=== PATIENT | female | born 1980 | race African-American/Black ===

== ENCOUNTER 2019-07-02 11:54 | Emergency (ER) | payer OTHER, SELFPAY ==
[2019-07-02] VITALS (8 sets, daily range): BP systolic 113–161; BP diastolic 78–119; PULSE 85–125; RESP 16–20; TEMP 36.3; O2SAT 96–98
--- NOTE | ~2019-07-02 | CT_ITS ---
EXAMINATION: CTA chest PE protocol DATE: 07/02/2019 15:19 CDT INDICATION: Shortness of breath with cough TECHNIQUE: Computed tomographic angiography (CTA) of the chest was performed with 100 mL Omnipaque-35 0 intravenous contrast. The dose-length product was 1259.11 mGy-cm. Maximum intensity projection 3D-r econstructions of the aorta and other arteries were constructed by the technologist on a separate wor kstation. Automated exposure control and iterative reconstruction technique were employed. COMPARISON: Chest x-ray dated 07/02/2019 FINDINGS: Cardiomegaly. Small pericardial effusion. Small pleural effusions, right greater than left. There is prevascular space soft tissue which may represent lymphadenopathy and/or residual thymic ti ssue. The study is technically adequate without evidence for pulmonary embolism. There is interlobular sept al thickening with subtle areas of groundglass opacification in the right lung. There is atelectasis of the left mid and lower lung. The upper abdomen is unremarkable. There is right basilar atelectasis . IMPRESSION: 1. Interlobular septal thickening right lung with subtle patchy areas of groundglass opacification. D ifferential diagnosis includes asymmetric interstitial edema and atypical pneumonia. 2: Small pleural effusions, right greater than left. 3: Cardiomegaly with small pericardial effusion. 4: Prevascular space soft tissue nodularity which may reflect lymphadenopathy and/or residual thymic tissue. 5: Bibasilar atelectasis. Reviewed, dictated and finalized at location A. IMPRESSION: 1. Interlobular septal thickening right lung with subtle patchy areas of ground glass opacification. Differential diagnosis includes asymmetric interstitial ed luan and atypical pneumonia. 2: Small pleural effusions, right greater than left. 3: Cardiomegaly with small pericardial effusion. 4: Prevascular space soft tissue nodularity which may reflect lymphadenopathy a nd/or residual thymic tissue. 5: Bibasilar atelectasis.
--- NOTE | ~2019-07-02 | XR_ITS ---
EXAMINATION: XR chest 1V portable DATE: 07/02/2019 13:22 INDICATION: Cough. Chest pain. TECHNIQUE: A single frontal view of the chest was obtained. COMPARISON: None. FINDINGS: There are mild airspace opacities in the perihilar regions. No pleural effusion or pneumoth orax. Cardiomegaly is noted. IMPRESSION: 1. Mild airspace opacities in the perihilar regions, consistent with mild pulmonary edema versus atyp ical pneumonia. 2. Cardiomegaly. Reviewed, dictated and finalized at location A. IMPRESSION: 1. Mild airspace opacities in the perihilar regions, consistent with mild pulmo nary edema versus atypical pneumonia. 2. Cardiomegaly.
--- NOTE | 2019-07-02 12:24 | ECG_ITS ---
Measurements Intervals [place] Rate: 112 P: 17 ND: 153 QRS: 69 QRSD: 93 T: 60 QT: 278 QTc: 381 Interpretive Statements SINUS TACHYCARDIA NONSPECIFIC T-WAVE ABNORMALITY- DIFFUSE LEADS BASELINE ARTIFACT- I, II, III, AVR, AVL, AVF ABNORMAL ECG Electronically Signed On 07-02-2019 15:46:41 CDT by Adalid Carr D.O.
--- NOTE | 2019-07-02 12:27 | ED.URI ---
HPI - URI/Sore Throat General Chief Complaint: Upper Respiratory Infection <Angela Martinez PA-C - Last Filed: 07/02/19 17:34> Stated Complaint: cough/diarrhea/freq urination <SANTO Rodriguez Last Filed: 07/02/19 17:34> Time Seen by Provider: 07/02/19 12:13 <SANTO Rodriguez Last Filed: 07/02/19 17:34> Source: patient <SANTO Rodriguez Last Filed: 07/02/19 17:34> Mode of arrival: ambulatory <SANTO Rodriguez Last Filed: 07/02/19 17:34> Limitations: no limitations <SANTO Rodriguez Last Filed: 07/02/19 17:34> History of Present Illness HPI Narrative: This is a 38 year old female that presents to the ER for cold symptoms x 2 weeks. Reports cough and congestion. Also reports some shortness of breath with exertion. Reports some left sided chest pain that is worse with breathing and coughing. Reports she has been treated with antibiotics without improvement. Reports she also has been having loose stools since she started the antibiotics. Denies fever, abdominal pain, vomiting, or hematochezia. <Angela Martinez PA-C - Last Filed: 07/02/19 17:34> Related Data Allergies/Adverse Reactions: Allergies Allergy/AdvReac Type Severity Reaction Status Date / Time No Known Allergies Allergy Verified 07/02/19 12:05 <SANTO Rodriguez Last Filed: 07/02/19 17:34> Review of Systems Review of Systems: Narrative: CONSTITUTIONAL: Denies fever ENT: Reports congestion. Denies sore throat, or otalgia. CARDIOVASCULAR: Reports chest pain RESPIRATORY: Reports cough and dyspnea. GASTROINTESTINAL: Reports diarrhea. Denies abdominal pain, nausea, vomiting <SANTO Rodriguez Last Filed: 07/02/19 17:34> All systems reviewed & are unremarkable except as noted in HPI and below <SANTO Rodriguez Last Filed: 07/02/19 17:34> PMFSH Past Medical History Medical History: Medical History (Updated 07/03/19 @ 00:00 by Nimo Lepe) No active medical problems <Angela Martinez PA-C - Last Filed: 07/02/19 17:34> Social History Social History: Social History (Updated 07/02/19 @ 12:28 by Angela Martinez PA-C) Smoking status: Never smoker <Angela Martinez PA-C - Last Filed: 07/02/19 17:34> Exam Narrative: Exam Narrative: GENERAL: Well-appearing, well-nourished, and in no acute distress. HEAD: Normocephalic, atraumatic. EYES: EOMI. ENT: Turbinates swollen and pale. Mucous membranes moist. Oropharynx without tonsillar hypertrophy exudate or other lesions. Bilateral TMs pearly solomon non-bulging NECK: Supple. No adenopathy or masses. CHEST: Clear to auscultation. No respiratory distress. No wheezes rales or rhonchi HEART: Regular rate and rhythm. No murmur heard. Normal peripheral pulses. EXTREMITIES: Normal range of motion. No edema. SKIN: Warm, dry, no rash. NEURO: No focal deficits. Alert and oriented x3. PSYCH: Normal mood and affect <Angela Martinez PA-C - Last Filed: 07/02/19 17:34> Course RETAIL SUPPORT SPECIALIST/PA Physician Supervision For this patient encounter, I reviewed the RETAIL SUPPORT SPECIALIST or PA documentation, treatment plan, and medical decision making; and I had [id number] time with this patient. 38 year old female with cough, congestion, and shortness of breath with exertion x1 month. Treated with antibiotics without improvement. Labs and imaging concerning for CHF, versus atypical pneumonia. Was planning for admission, but she chose to sign out AMA. <Jj Rabago MD - Last Filed: 07/03/19 13:50> Vital Signs Vital signs: Vital Signs Temperature 36.3 C L 07/02/19 12:01 Pulse Rate 125 H 07/02/19 12:01 Respiratory Rate 20 07/02/19 12:01 Pulse Oximetry 98 07/02/19 12:01 Temperature 36.3 C L 07/02/19 12:01 Pulse Rate 96 07/02/19 18:04 Respiratory Rate 20 07/02/19 18:04 Blood Pressure 113/78 07/02/19 18:04 Pulse Oximetry 96 07/02/19 18:04 <Angela Martinez PA-C - Last Filed: 07/02/19 17:34>
[2019-07-02] MEDS: KETOROLAC 30 MG/ML VIAL (*BKC) IV PUSH (12:45)
[2019-07-02] MEDS: SODIUM CHLORIDE 0.9% IV 500 ML 999 ML IV CONT (12:45)
--- NOTE | 2019-07-02 12:52 | PC.NURSE ---
unable to obtain blood, landy forrester to attempt
[2019-07-02 13:26] LABS: Lactic Acid Reflex 1.1 mmol/L (0.7-2.1)
[2019-07-02 13:28] LABS: Alanine Aminotransferase 31 U/L (4-35); Albumin Level 3.1 g/dL (3.5-5.1); Alkaline Phosphatase 63 U/L (38-126); Aspartate Amino Transferase 35 U/L (14-36); Bilirubin,Total 0.4 mg/dL (0.2-1.3); Blood Urea Nitrogen 10 mg/dL (7-17); Calcium 8.6 mg/dL (8.4-10.2); Carbon Dioxide 21 mmol/L (22-30); Chloride 107 mmol/L (98-107); Estimated Glomerular Filt Rate > 60; Glucose 109 mg/dL (65-105); Sodium 135 mmol/L (137-145)
[2019-07-02 13:32] LABS: CRP 1.8 mg/dL (<1.0); Lactate Dehydrogenase 739 U/L (313-618)
[2019-07-02 13:40] LABS: NT Pro B Type Natriuretic Pept 3080 PG/ML (5-100); Troponin I 0.022 ng/mL (0.000-0.034)
[2019-07-02 13:51] LABS: Basophils Percent Auto 0.3 % (0.2-1.2); Eosinophils Absolute Auto 0.1 K/mm3 (0-0.3); Eosinophils Percent Auto 0.5 % (0-4.4); Hematocrit 37.2 % (37.0-47.0); Hemoglobin 11.1 g/dL (12.0-15.0); Immature Granulocyte Absolute 0.04 K/mm3 (0.00-0.031); Immature Granulocyte Percent A 0.4 % (0-0.5); Lymphocytes Absolute Auto 2.73 K/mm3 (0.9-3.2); Lymphocytes Percent Auto 29.7 % (18.3-44.2); Mean Corpuscular HGB Conc 29.8 g/dl (32-36); Mean Corpuscular Hemoglobin 22.3 pg (26-34); Mean Corpuscular Volume 74.7 fl (80-100); Mean Platelet Volume 10.7 fl (7.4-10.4); Monocytes Absolute Auto 0.5 K/mm3 (0.1-0.6); Monocytes Percent Auto 5.2 % (2.6-8.5); Neutrophils Absolute Auto 5.9 K/mm3 (1.3-6.7); Neutrophils Percent Auto 63.9 % (45.5-73.1); Platelet Count Result 369 k/mm3 (150-375); Red Blood Count 4.98 M/mm3 (4.2-5.4); Red Cell Distribution Width 16.4 % (11.5-14.5); White Blood Count 9.2 K/mm3 (4.5-10.0)
[2019-07-02 13:59] LABS: INR 1.1; Prothrombin Time 13.6 Seconds (11.1-14.7)
[2019-07-02 14:00] LABS: Partial Thromboplastin Time 25.3 SECONDS (22.3-36.8)
[2019-07-02 14:03] LABS: D Dimer 0.89 ug/mL (<0.48); Hypochromasia 1+ (NORMAL); Microcytosis 1+ (NORMAL); Platelet Estimate Adequate (Adequate)
--- NOTE | 2019-07-02 14:10 | PC.NURSE ---
Pt ambulatory to restroom with no issues
[2019-07-02 14:25] LABS: Add Urine Microscopic? YES; Appearance Urine Clear (Clear); Bacteria Urine Trace /hpf; Bilirubin Urine Negative (Negative); Blood Urine Negative (Negative); Color Urine Yellow (Yellow); Glucose Urine UA Negative (Negative); Ketones Urine Negative (Negative); Leukocyte Esterase Ur Negative LEU/UL (Negative); Mucus Urine Moderate /lpf; Nitrate Urine Negative (Negative); Protein Urine 2+ mg/dL (Negative); RBC Urine 0-2 /hpf (0-2); Specific Grav Ur 1.024 (1.001-1.035); Squamous Epithelial Cell Urine Many /hpf (Few)
--- NOTE | 2019-07-02 15:06 | PC.NURSE ---
Pt to CT
[2019-07-02] MEDS: LABETALOL HCL INJ 100 MG/20 ML VIAL 20 MG IV PUSH (15:50)
[2019-07-02] MEDS: FUROSEMIDE INJ 40 MG/4 ML VIAL IV PUSH (16:11)
--- NOTE | 2019-07-02 16:20 | PC.NURSE ---
EPD to bedside updated patient on plan of care. Pt and family member had several questions. EPD answered. Pt states she does not want to be admitted here and wants to be admitted at a facility closer to home.
--- NOTE | 2019-07-02 16:24 | PC.NURSE ---
Called phlebotomy to draw 3 hour troponin.
--- NOTE | 2019-07-02 16:28 | PC.NURSE ---
LAb at bedside for trop
[2019-07-02] MEDS: ONDANSETRON INJ 4 MG/2 ML VIAL IV PUSH (16:56)
== END 2019-07-02 18:32 | disposition left against medical advice (07) ==
PROVIDERS: Physician Assistant; Emergency Provider Emergency Medicine
DX: J18.9 Pneumonia, unspecified organism (principal); I30.9 Acute pericarditis, unspecified; I50.9 Heart failure, unspecified; I51.7 Cardiomegaly; R00.0 Tachycardia, unspecified; R94.31 Abnormal electrocardiogram [ECG] [EKG]
CPT/HCPCS: 36415; 71045; 71275; 80053; 81001; 81025; 83605; 83615; 83880; 84484; 85025; 85380; 85610; 85730; 86140; 87086; 87088; 87804; 93005; 96361; 96365; 96367; 96375; 99284; J0456; J0696; J1885; J1940; J2405; J7040; Q9967

== ENCOUNTER 2021-07-07 20:32 | Emergency (ER) | payer OTHER, SELFPAY ==
--- NOTE | ~2021-07-07 | XR_ITS ---
EXAMINATION: XR abdomen obstructive series EXAM DATE: 07/07/2021 23:55 INDICATION: Constipation and abdominal cramping TECHNIQUE: Frontal upright projection of the upper abdomen, frontal projection of the lower abdomen f or interpretation. There is no prior study for comparison. FINDINGS: There is moderate to large amount of ascending, transverse and descending colonic stool an d gas with transition at the mid descending colon, small amount of sigmoid colonic stool and gas. No dilated small bowel. There is no organomegaly. No suspicious soft tissue calcifications identified. IMPRESSION: Moderate to large amount of colonic stool to mid descending colon with transition to smal l amount in the sigmoid. Probably constipation but if symptoms persist consider CT without contrast t o exclude possibility of obstructing colonic mass. Reviewed, dictated and finalized at location A. IMPRESSION: Moderate to large amount of colonic stool to mid descending colon w ith transition to small amount in the sigmoid. Probably constipation but if sym ptoms persist consider CT without contrast to exclude possibility of obstructin g colonic mass.
[2021-07-07 20:33] VITALS: BP 154/107; PULSE 85; RESP 16; TEMP 36.4; O2SAT 100
--- NOTE | 2021-07-07 22:55 | ED.ABDPAIN ---
HPI - Abdominal Pain General Chief Complaint: Abdominal Pain Stated Complaint: im having alot of gas Time Seen by Provider: 07/07/21 22:35 Source: patient and RN notes reviewed Mode of arrival: ambulatory Limitations: no limitations History of Present Illness HPI narrative: 40-year-old female presenting to the emergency department for evaluation of multiple complaints. Patient states that for the last few weeks that she has had intermittent abdominal cramping and some epigastric pain. Patient also reports she has been having some constipation. Patient states she is still passing stool but describes it as small balls. Patient also reports lower extremity thigh pain and popping of her wrists and ankles that has been ongoing for the past few months patient denies any specific incident of injury. Patient reports he does have follow-up tomorrow with her primary care physician but wanted to get these complaints checked out tonight. Related Data Allergies Allergy/AdvReac Type Severity Reaction Status Date / Time No Known Allergies Allergy Verified 07/07/21 20:35 Review of Systems Review of Systems: CONSTITUTIONAL: Denies fever, chills, or sweats. EYES: Denies visual changes, redness, or discharge. ENT: Denies rhinorrhea, congestion, sore throat, or otalgia. CARDIOVASCULAR: Denies chest pain, palpitations, or edema. RESPIRATORY: Denies cough or dyspnea. GASTROINTESTINAL: See HPI GENITOURINARY: Denies dysuria or hematuria. SKIN: Denies rash or itching. MUSCULOSKELETAL: See HPI NEUROLOGIC: Denies headache, numbness, or weakness. All systems reviewed & are unremarkable except as noted in HPI and below PMFSH Past Medical History Medical History (Updated 07/08/21 @ 00:26 by John Pinzon MD) No active medical problems Social History Social History (Updated 07/02/19 @ 12:28 by Angela Martinez PA-C) Smoking status: Never smoker Exam Narrative: APPEARANCE: Well appearing, no pain, no distress, well-nourished. HEAD: normocephalic, atraumatic. EYES: PERRLA/EOMI, conjunctivae clear. NOSE: Normal no drainage NECK: Supple. No adenopathy, no masses. RESPIRATORY: Airway patent, respirations nonlabored. Clear to auscultation bilaterally, no rales, rhonchi, wheezing. CARDIOVASCULAR: Regular rate and rhythm without murmurs rubs or gallops. ABDOMINAL: Soft, nontender, nondistended, normal bowel sounds MUSCULOSKELETAL: Moves all extremities. Strength/ROM intact, No edema, No calf tenderness. NEURO: Alert. Cranial nerves II through XII intact. Grossly intact SKIN: Warm, dry. Normal Color Course Course Emergency Course: Abdominal x-ray showed nonspecific bowel gas pattern with no evidence of obstruction, evidence of constipation or increased stool burden. His labs were within normal limits. Patient was advised to increase her water intake and to start taking MiraLAX for her constipation. Patient does have follow-up with her primary care physician tomorrow. Patient was updated on the results and was comfortable with the plan for discharge and follow-up. Vital Signs Vital signs: Vital Signs Temperature 97.6 F 07/07/21 20:33 Pulse Rate 85 07/07/21 20:33 Respiratory Rate 16 07/07/21 20:33 Blood Pressure 154/107 H 07/07/21 20:33 Pulse Oximetry 100 07/07/21 20:33 Temperature 97.6 F 07/07/21 20:33 Pulse Rate 77 07/08/21 01:02 Respiratory Rate 18 07/08/21 01:02 Blood Pressure 152/84 H 07/08/21 01:02 Pulse Oximetry 100 07/08/21 01:02 MDM - Abdominal Pain Lab Data Attestation: I reviewed the patient's lab results. Result diagrams: 07/07/21 23:32 07/07/21 23:32 Labs: Lab Results 07/07/21 07/07/21 07/07/21 Range/Units 23:32 23:32 23:32 WBC 7.5 (4.5-10.0) K/mm3 RBC 5.09 (4.2-5.4) M/mm3 Hgb 12.3 (12.0-15.0) g/dL Hct 42.5 (37.0-47.0) % MCV 83.5 (80-100) fl MCH 24.2 L (26-34) pg MCHC 28.9 L (32-36) g/dl RDW 15.0 H (11.5-14
[2021-07-07] MEDS: BELLADONNA ALK/PHENOB ELIX 10 ML, MAG HYDROX/ALUMINUM HYD/SIMETH 30 ML, LIDOCAINE HCL 2... PO (23:30)
[2021-07-07 23:51] LABS: Basophils Percent Auto 0.5 % (0.2-1.2); Eosinophils Absolute Auto 0.1 K/mm3 (0-0.3); Eosinophils Percent Auto 1.5 % (0-4.4); Hematocrit 42.5 % (37.0-47.0); Hemoglobin 12.3 g/dL (12.0-15.0); Immature Granulocyte Absolute 0.03 K/mm3 (0.00-0.031); Immature Granulocyte Percent A 0.4 % (0-0.5); Lymphocytes Absolute Auto 2.97 K/mm3 (0.9-3.2); Lymphocytes Percent Auto 39.5 % (18.3-44.2); Mean Corpuscular HGB Conc 28.9 g/dl (32-36); Mean Corpuscular Hemoglobin 24.2 pg (26-34); Mean Corpuscular Volume 83.5 fl (80-100); Mean Platelet Volume 10.3 fl (7.4-10.4); Monocytes Absolute Auto 0.6 K/mm3 (0.1-0.6); Monocytes Percent Auto 7.6 % (2.6-8.5); Neutrophils Absolute Auto 3.8 K/mm3 (1.3-6.7); Neutrophils Percent Auto 50.5 % (45.5-73.1); Platelet Count Result 246 k/mm3 (150-375); Red Blood Count 5.09 M/mm3 (4.2-5.4); White Blood Count 7.5 K/mm3 (4.5-10.0)
[2021-07-07 23:56] LABS: Hypochromasia 1+ (NORMAL); Platelet Estimate Adequate (Adequate)
[2021-07-07 23:59] LABS: Alanine Aminotransferase 18 U/L (4-35); Albumin Level 3.8 g/dL (3.5-5.1); Alkaline Phosphatase 91 U/L (38-126); Anion Gap 5 mmol/L (8-16); Aspartate Amino Transferase 25 U/L (14-36); Bilirubin,Total 0.3 mg/dL (0.2-1.3); Blood Urea Nitrogen 12 mg/dL (7-17); Calcium 8.8 mg/dL (8.4-10.2); Carbon Dioxide 29 mmol/L (22-30); Chloride 101 mmol/L (98-107); Estimated Glomerular Filt Rate > 60; Glucose 94 mg/dL (65-110); Potassium 3.4 mmol/L (3.4-5.0); Sodium 135 mmol/L (137-145)
[2021-07-08 00:05] LABS: Add Urine Microscopic? YES; Appearance Urine Slightly Cloudy (Clear); Bacteria Urine Trace /hpf; Bilirubin Urine Negative (Negative); Blood Urine 2+ (Negative); Color Urine Yellow (Yellow); Glucose Urine UA Negative (Negative); Ketones Urine Negative (Negative); Leukocyte Esterase Ur Negative LEU/UL (Negative); Mucus Urine Rare /lpf; Nitrate Urine Negative (Negative); Protein Urine Negative (Negative); RBC Urine 0-2 /hpf (0-2); Squamous Epithelial Cell Urine Many /hpf (Few); Urobilinogen Urine 0.2 mg/dL (<2.0); pH Urine 6.5 (5.0-9.0)
[2021-07-08 01:02] VITALS: BP 152/84; PULSE 77; RESP 18; O2SAT 100
== END 2021-07-08 00:55 | disposition home or self-care (01) ==
PROVIDERS: Emergency Provider Emergency Medicine; PCP Family Medicine
DX: K59.00 Constipation, unspecified (principal)
CPT/HCPCS: 36415; 74019; 80053; 81001; 81025; 85025; 99283; A9270

== ENCOUNTER 2024-06-10 11:00 | Emergency (ER) | payer OTHER, SELFPAY ==
--- NOTE | ~2024-06-10 | XR_ITS ---
XR knee RT 3V 06/10/2024 13:05 Indication: Right knee pain Procedure: 3 views right knee Comparison: No prior studies for comparison. Findings: No fracture, subluxation or dislocation. A there is moderate tricompartment osteoarthritis. No significant joint effusion. No foreign bodies. Impression: 1: Moderate tricompartment osteoarthritis. Reviewed, dictated and finalized at location B. Impression: 1: Moderate tricompartment osteoarthritis.
--- OUTSIDE RECORDS SUMMARY | 2024-06-10 11:04 | XMS_ITS | CONTINUITY OF CARE DOCUMENT ---
Author Name irlanda, irlanda Address Unknown Organization [facility] Address [address] [facility] [address] [place] [address] Phone [phone] Care Team Providers Care Seasonal Recruiter Name Role Phone Dhruv Stock MD Unavailable STEPHY BAEZA, JOSELUIS H Unavailable [phone] STEPHY BAEZA, JOSELUIS Yuan Unavailable [phone] PROBLEMS Condition Status Date Provider Notes CHF active Dhruv Stock MD HTN essential active Dhruv Stock MD Morbid obesity active Dhruv Stock MD Cardiomyopathy, non-ischemic , EF 10% by cath 06/2019, EF 20% by echo 07/2019, EF 50% by echo 11/2019, EF 62% by echo 02/2021 active Dhruv roach MD Abnormal EKG active Dhruv Stock MD Snoring active Dhruv Stock MD Mitral regurgitation, mild active Dhruv roach MD ENCOUNTERS Date Type Provider Location Encounter Diag nosis - In-person encounter Office Visit Dhruv Stock MD [facility] - In-person encounter Office Visit Dhruv Stock MD [facility] Cardiomyopathy, non-ischemic, EF 10% by cath 06/2019, EF 20% by echo 07/2019, EF 50% by echo 11/2019, EF 62% by echo 02/2021Mitral regurgitation, mild - In-person encounter Office Visit Dhruv Stock MD [facility] - In-person encounter Office Visit Dhruv Stock MD [facility] - In-person encounter Office Visit Dhruv Stock MD [facility] - In-person encounter Office Visit Dhruv Stock MD [facility] - In-person encounter Office Visit Dhruv Stock MD [facility] - In-person encounter Office Visit Dhruv Stock MD [facility] - In-person encounter Office Visit Dhruv Stock MD [facility] Cardiomyopathy, non-ischemic, EF 10% by cath 06/2019, EF 20% by echo 07/2019, EF 50% by echo 11/2019, EF 62% by echo 02/2021 - In-person encounter Office Visit Dhruv Stock MD [facility] - In-person encounter Office Visit Dhruv Stock MD [facility] - In-person encounter Office Visit Dhruv Stock MD [facility] Cardiomyopathy, non-ischemic, EF 10% by cath 06/2019, EF 20% by echo 07/2019, EF 50% by echo 11/2019, EF 62% by echo 02/2021 - In-person encounter Office Visit Dhruv Stock MD [facility] CHFHTN essentialMorbid obesityCardiomyopathy, non-ischemic, EF 10% by cath 06/2019, EF 20% by echo 07/2019, EF 50% by echo 11/2019, EF 62% by echo bnormal EKGSnoring VITAL SIGNS Date Observation Value Provider Body Mass Index (Ratio) 68.66 kg/m2 Osorio Carter blood pressure, diastolic 117 mm[Hg] St acsaba Myers blood pressure, systolic 173 mm[Hg] Sta cy Louis blood pressure, cuff size large St cathleen Myers oxygen saturation, oximetry 98 % Rea Myers pulse rate 86 /min Rea Myers weight E&M 340 [lb_av] Rea Louis respiratory rate E&M 18 /min Rea stricklands height E&M 59 [in_i] Rea Myers Body Mass Index (Ratio) 69.47 kg/m2 Clarice Stock MD blood pressure, diastolic 52 mm[Hg] Sa ra Hayes blood pressure, systolic 160 mm[Hg] Abdirahman a Hayes respiratory rate E&M 19 /min Danielle Si ms oxygen saturation, oximetry 99 % Danielle Hayes pulse rate 99 /min Danielle Hayes blood pressure, cuff size regular Sa ra Hayes weight E&M 344 [lb_av] Danielle Hayes height E&M 59 [in_i] Danielle Hayes Body Mass Index (Ratio) 67.86 kg/m2 Clarice Stock MD blood pressure, diastolic 110 mm[Hg] Sa ra Hayes blood pressure, systolic 150 mm[Hg] Abdirahman a Hayes respiratory rate E&M 19 /min Danielle Si ms blood pressure, cuff size large Sa ra Hayes oxygen saturation, oximetry 99 % Danielle Hayes pulse rate 85 /min Danielle Hayes weight E&M 336 [lb_av] Danielle Hayes height E&M 59 [in_i] Danielle Hayes Body Mass Index (Ratio) 67.86 kg/m2 Osorio Carter blood pressure, cuff size large Tr yolanda Darden blood pressure, diastolic 100 mm[Hg] Wilbert Darden blood pressure, systolic 170 mm[Hg] Shital laneavinash Darden oxygen saturation, oximetry 98 % Tamika Darden respiratory rate E&M 18 /min Trymeg Darden pulse rate 88 /min Trymeg Darden weight E&M 336 [lb_av] Tamika Darden height E&M 59 [in_i] Tamika Darden Body Mass Index (Ratio) 68.26 kg/m2 Clarice Stock MD oxygen saturation, oximetry 93 % Tamika Darden respiratory rate E&M 20 /min Tamika Darden pulse rate 92 /min Dhruv Stock MD weight E&M 338 [lb_av] Tamika Darden height E&M 59 [in_i] Tamika Darden Body Mass Index (Ratio) 66.77 kg/m2 Clarice Stock MD blood pressure, diastolic 90 mm[Hg] Thalia Ugartebarrera Ji blood pressure, systolic 144 mm[Hg] Miriam White Garrison oxygen saturation, oximetry 94 % Aby Ji respiratory rate E&M 16 /min Erendira tom Ji pulse rate 76 /min Aby Abbasi rosio weight E&M 330.6 [lb_av] AbyMary newton height E&M 59 [in_i] Aby Abbasi rosio Body Mass Index (Ratio) 66.24 kg/m2 Clarice Stock MD blood pressure, diastolic 80 mm[Hg] Rafat Peterson blood pressure, systolic 146 mm[Hg] Sandi Peterson blood pressure, cuff size regular Cy sarah Peterson pulse rate 76 /min Susanne porter oxygen saturation, oximetry 99 % Susanne Peterson respiratory rate E&M 16 /min Susanne Peterson weight E&M 328 [lb_av] Susanne Campbel l height E&M 59 [in_i] Susanne Campbel l Body Mass Index (Ratio) 67.05 kg/m2 Clarice Stock MD blood pressure, cuff size large Ke rri Gruenenfelder blood pressure, diastolic 90 mm[Hg] Ke rri Gruenenfelder blood pressure, systolic 160 mm[Hg] Cheng ri rAuenenfelder oxygen saturation, oximetry 98 % Marley Andersoneldbridgett respiratory rate E&M 16 /min Marley Aspen perlanfelder pulse rate 80 /min Marley Gruenenfe lder weight E&M 332 [lb_av] Marley Gruenenfe lder height E&M 59 [in_i] Marley Gruenenfe lder Body Mass Index (Ratio) 64.83 kg/m2 Clarice Stock MD blood pressure, cuff size regular Cy sarah Peterson blood pressure, diastolic 91 mm[Hg] Cy ntyulissaa Nicholas blood pressure, systolic 164 mm[Hg] Sandi Peterson oxygen saturation, oximetry 99 % Susanne Peterson respiratory rate E&M 16 /min Susanne Peterson pulse rate 76 /min Susanne Tripbel l weight E&M 321 [lb_av] Susanne Campbel l height E&M 59 [in_i] Susanne Campbel l Body Mass Index (Ratio) 66.04 kg/m2 Clarice Stock MD blood pressure, diastolic 93 mm[Hg] Cy ntjanette Peterson blood pressure, systolic 154 mm[Hg] Sandi jack Peterson pulse rate 69 /min Susanne Tripbel l oxygen saturation, oximetry 98 % Susanne Peterson respiratory rate E&M 16 /min Susannejack Peterson blood pressure, cuff size regular Cy sarah Peterson weight E&M 327 [lb_av] Susannejack Cortez l height E&M 59 [in_i] Susannejack Cortez l Body Mass Index (Ratio) 65.84 kg/m2 Clarice can Stock MD blood pressure, cuff size regular Kr isty Ignacia blood pressure, diastolic 84 mm[Hg] Kr isty Ignacia blood pressure, systolic 150 mm[Hg] Kri sty Ignacia oxygen saturation, oximetry 99 % Tete Comstock respiratory rate E&M 19 /min Tete Ignacia pulse rate 82 /min Tete Comstock weight E&M 326 [lb_av] Tete Comstock height E&M 59 [in_i] Tete Comstock Body Mass Index (Ratio) 66.85 kg/m2 Clarice can Stock MD blood pressure, cuff size regular Kr isty Ignacia oxygen saturation, oximetry 97 % Tete Ignacia blood pressure, diastolic 105 mm[Hg] Kr isty Comstock blood pressure, systolic 142 mm[Hg] Kri sty Ignacia respiratory rate E&M 17 /min Tete Ignacia weight E&M 331 [lb_av] Tete Comstock height E&M 59 [in_i] Tete Comstock temperature site temporal Jennifer Tank sley temperature E&M 97.3 [degF] Jennifer Tanks meredith Body Mass Index (Ratio) 65.03 kg/m2 Clarice can Stock MD blood pressure, diastolic 80 mm[Hg] Cy carlosyulissaangelique Nicholas blood pressure, systolic 128 mm[Hg] Sandi thia Peterson pulse rate 97 /min Susanne porter oxygen saturation, oximetry 97 % Susanne Peterson respiratory rate E&M 16 /min Susanne Nicholas height E&M 59 [in_i] Susanne porter weight E&M 322 [lb_av] Susanne porter blood pressure, cuff size regular Cy nthia Peterson ALLERGIES Allergy Name Onset Date Reaction Criticality Status NIFEDIPINE High Criticality active NORVASC dizziness dizziness Low Criticality active HYDROCHLOROTHIAZIDE High Criticality active HYDRALAZINE dizziness dizziness Low Criticality active HISTORY OF MEDICATION USE Medication Status Instructions Dates Provider Indications Com ments spironolactone 25 mg tablet active TAKE 1 TABLET BY MOUTH DAILY 08/31 [facility] carvedilol 25 mg tablet active TAKE 1 TABLET BY MOUTH TWICE DAILY 08/31 [facility] chlorthalidone 25 mg tablet active TAKE 1 TABLET BY MOUTH DAILY 08/31 [facility] Coreg 25 mg tablet completed Take 1 tablet by mouth twice a day - 08/31 [facility] spironolactone 25 mg tablet completed Take 1 tablet by mouth once a day 07/28 - 08/31 [facility] losartan 100 mg tablet completed Take 1 tablet by mouth once a day - 07/28 Dhruv Stock MD chlorthalidone 25 mg tablet completed Take 1 tablet by mouth once a day 06/30 - 08/31 [facility] carvedilol 25 mg tablet completed Take 1 tablet by mouth twice a day - 07/28 Dhruv Stock MD carvedilol unspecified unspecified completed Take 1 tablet by mouth once a day - 06/30 Danielle Hayes OMEPRAZOLE 20 MG ORAL CAPSULE DELAYED RELEASE completed TAKE 1 CAPSULE BY MOUTH EVERY DAY 05/17 - 06/24 Susanne Peterson #30, 30 days supply, Prescribed by JOSELUIS KEYES, Filled 05/17/2020 MELOXICAM 15 MG ORAL TABLET completed TAKE 1 TABLET BY MOUTH EVERY DAY 05/17 - 06/24 Susanne Peterson #30, 30 days supply, Prescribed by JOSELUIS KEYES, Filled 05/17/2020 fluticasone propionate 50 mcg/actuation spray,suspension active Conifer 1 spray into both nostrils once a day 05/17 Marley Rosenberg #16, 60 days supply, Prescribed by JOSELUIS KEYES, Filled 05/17/2020 CETIRIZINE HCL 10 MG ORAL TABLET completed TAKE 1 TABLET BY MOUTH ONCE DAILY 05/17 - 06/24 Susanne Peterson #30, 30 days supply, Prescribed by JOSELUIS KEYES, Filled 05/17/2020 BACLOFEN 20 MG ORAL TABLET completed TAKE 1 TABLET BY MOUTH TWICE DAILY NEEDED 05/17 - 06/24 Susanne Peterson #60, 30 days supply, Prescribed by JOSELUIS KEYES, Filled 05/17/2020 AMOXICILLIN 875 MG ORAL TABLET completed TAKE 1 TABLET BY MOUTH EVERY 12 HOURS FOR 10 DAYS 05/17 - 10/16 Aby Ji #20, 10 days supply, Prescribed by JOSELUIS KEYES, Filled 05/17/2020 AMLODIPINE BESYLATE 10 MG ORAL TABLET completed one tab by mouth daily 05/05 - 06/24 Susanne Peterson HYDRALAZINE HCL 50 MG ORAL TABLET completed one tab by mouth twice daily 12/03 - 05/05 Susanne Peterson HYDROCHLOROTHIAZIDE 25 MG ORAL TABLET completed TK 1 T PO D 07/05 - 05/05 Rico Carter #30, 30 days supply, Prescribed by RAUL LOPEZ, Filled 07/06/2019 FUROSEMIDE 40 MG ORAL TABLET completed take 1 tab daily 07/05 - 05/05 Susanne Peterson #30, 30 days supply, Prescribed by RAUL LOPEZ, Filled 07/06/2019 AZITHROMYCIN 250 MG ORAL TABLET completed TK 2 TS PO D FOR 2 MORE DAYS THEN STOP 07/05 - 09/24 Dhruv Stock MD #4, 4 days supply, Prescribed by RAUL LOPEZ, Filled 07/06/2019 carvedilol 25 mg tablet completed Take 1 tablet by mouth twice a day 05/14 - 03/31 Camacho Mg #60, 30 days supply, Prescribed by RAUL LOPEZ, Filled 07/06/2019 SOCIAL HISTORY Date Observation Value Provider social history E&M S moking History: Sandra lazaro has never smoked. Dhruv Stcok MD social history reviewed E&M revi ewed - no changes required Dhruv Stock MD smoking status Never smoker Rea Myers social history reviewed E&M revi ewed - no changes required Dhruv Stock MD social history E&M S moking History: Sandra lazaro has never smoked. Dhruv Stock MD smoking status Never smoker Dhruv merino MD social history reviewed E&M revi ewed - no changes required Dhruv Stock MD smoking status Never smoker Tamika stacy social history E&M S moking History: Sandra lazaro has never smoked. Dhruv Stock MD social history reviewed E&M revi ewed - no changes required Dhruv Stock MD smoking status Never smoker Tamika stacy social history E&M S moking History: Sandra lazaro has never smoked. Rico Carter social history reviewed E&M revi ewed - no changes required Dhruv Stock MD smoking status Never smoker Aby Kelly social history E&M S moking History: Sandra lazaro has never smoked. Dhruv Stock MD social history reviewed E&M revi ewed - no changes required Dhruv Stock MD smoking status Never smoker Susanne hummel social history E&M S moking History: aSndra lazaro has never smoked. Dhruv Stock MD social history reviewed E&M revi ewed - no changes required Dhruv Stock MD smoking status Never smoker Marley hawley social history E&M S moking History: P atugo has never smoked. Rico Carter social history reviewed E&M revi ewed - no changes required Rico Carter smoking status Never smoker Susanne hummel social history E&M S moking History: P atugo has never smoked. Dhruv Stock MD social history reviewed E&M revi ewed - no changes required Dhruv Stock MD smoking status Never smoker Susanne hummel smoking status Never smoker Dhruv merino MD social history reviewed E&M revi ewed - no changes required Dhruv Stock MD social history E&M S moking History: P iveth has never smoked. Dhruv Stock MD social history reviewed E&M revi ewed - no changes required Dhruv Stock MD smoking status Never smoker Tete Alarconby number of grandchildren Dhruv Stock MD social history E&M S moking History: P iveth has never smoked. Dhruv Stock MD social history reviewed E&M revi ewed - no changes required Dhruv Stock MD smoking status Never smoker Susanne Ramya hummel FAMILY HISTORY Family Member Condition First Degree Blood Relative No Known Fam nay History INSURANCE PROVIDERS Payer name Policy type / Coverage type [place] [employer] (2) Medicaid [id number] ADVANCE DIRECTIVES Name Date DISCUSSED - NO DECISION MADE TREATMENT PLAN Date Name Performer [id number],SDhruv ra, MD [id number],SDhruv ra, [place] [id number],SDhruv ra, MD [id number],S, Dhruv Nugent ra, MD [id number],S, Dhruv Nugent ra, [place] [id number],C, B P today: 173/117 P rior BP: 160/52 (07/28/2021) Dhruv Stock MD [id number],C, W eight loss advised Dhruv Stock MD [id number],C,W ill add spironolactone 25 mg once a day. BP today: 160/52 P rior BP: 150/110 (06/30/2021) The following medications were removed from the medication list: Carvedilol 25 Mg Tablet (Carvedilol) ..... Take 1 tablet by mouth twice a day Losartan 100 Mg Tablet (Losartan) ..... Take 1 tablet by mouth once a day Her updated medication list for this problem includes: Spironolactone 25 Mg Tablet (Spironolactone) ..... Take 1 tablet by mouth once a day Chlorthalidone 25 Mg Tablet (Chlorthalidone) ..... Take 1 tablet by mouth once a day Dhruv Stock MD [id number],C, T he following medications were removed from the medication list: Carvedilol 25 Mg Tablet (Carvedilol) ..... Take 1 tablet by mouth twice a day Losartan 100 Mg Tablet (Losartan) ..... Take 1 tablet by mouth once a day Her updated medication list for this problem includes: Spironolactone 25 Mg Tablet (Spironolactone) ..... Take 1 tablet by mouth once a day Chlorthalidone 25 Mg Tablet (Chlorthalidone) ..... Take 1 tablet by mouth once a day Dhruv Stock MD [id number],S, Dhruv Nugent ra, MD [id number],W, Dhruv Nugent ra, MD [id number],S, T he following medications were removed from the medication list: Carvedilol Unspecified Unspecified (Carvedilol) ..... Take 1 tablet by mouth once a day Her updated medication list for this problem includes: Chlorthalidone 25 Mg Tablet (Chlorthalidone) ..... Take 1 tablet by mouth once a day Carvedilol 25 Mg Tablet (Carvedilol) ..... Take 1 tablet by mouth twice a day Dhruv Stock MD [id number],W, B P today: 150/110 P rior BP: 170/100 (03/31/2021) The following medications were removed from the medication list: Carvedilol Unspecified Unspecified (Carvedilol) ..... Take 1 tablet by mouth once a day Her updated medication list for this problem includes: Losartan 100 Mg Tablet (Losartan) ..... Take 1 tablet by mouth once a day Chlorthalidone 25 Mg Tablet (Chlorthalidone) ..... Take 1 tablet by mouth once a day Carvedilol 25 Mg Tablet (Carvedilol) ..... Take 1 tablet by mouth twice a day Dhruv Stock MD [id number],SDhruv ra, MD [id number],BRico [id number],S, T he following medications were removed from the medication list: Carvedilol 25 Mg Tablet (Carvedilol) ..... Take 1 tablet by mouth twice a day Her updated medication list for this problem includes: Nifedipine 30 Mg Tablet Extended Release (Nifedipine) ..... Take 1 tablet by mouth once a day Losartan 100 Mg Tablet (Losartan) ..... Take 1 tablet by mouth once a day Nitroglycerin 0.4 Mg Tablet, Sublingual (Nitroglycerin) ..... Dissolve 1 tablet under tongue as needed Rico Carter [id number],S, Rico Carter [id number],W, B P today: 170/100 P rior BP: 144/90 (09/02/2020) The following medications were removed from the medication list: Carvedilol 25 Mg Tablet (Carvedilol) ..... Take 1 tablet by mouth twice a day Her updated medication list for this problem includes: Losartan 100 Mg Tablet (Losartan) ..... Take 1 tablet by mouth once a day Rico Carter [id number],W, Dhruv Nugent ra, [place] [id number],C, u nmable to obtain BP today due to not having an appropriately sized cuff Prior BP: 144/90 (09/02/2020) Her updated medication list for this problem includes: Losartan Potassium 100 Mg Oral Tablet (Losartan potassium) ..... Take one tablet daily Carvedilol 25mg Tablets (Carvedilol) ..... Take 1 tablet by mouth twice daily Dhruv Stock MD [id number],S, H er updated medication list for this problem includes: Nitroglycerin 0.4 Mg Sublingual Tablet Sublingual (Nitroglycerin) ..... Dissolve 1 t under the tongue q 5 minutes up to three ts prn for chest pain Losartan Potassium 100 Mg Oral Tablet (Losartan potassium) ..... Take one tablet daily Carvedilol 25mg Tablets (Carvedilol) ..... Take 1 tablet by mouth twice daily Dhruv Stock MD [id number],S, Dhruv Nugent ra, [place] [id number],S, H er updated medication list for this problem includes: Nitroglycerin 0.4 Mg Sublingual Tablet Sublingual (Nitroglycerin) ..... Dissolve 1 t under the tongue q 5 minutes up to three ts prn for chest pain Carvedilol 25mg Tablets (Carvedilol) ..... Take 1 tablet by mouth twice daily Rico Carter [id number],S, H er updated medication list for this problem includes: Losartan Potassium 100 Mg Oral Tablet (Losartan potassium) ..... Take one tablet daily Carvedilol 25mg Tablets (Carvedilol) ..... Take 1 tablet by mouth twice daily BP today: 144/90 P rior BP: 146/80 (06/24/2020) Rico Carter [id number],S, H er updated medication list for this problem includes: Nitroglycerin 0.4 Mg Sublingual Tablet Sublingual (Nitroglycerin) ..... Dissolve 1 t under the tongue q 5 minutes up to three ts prn for chest pain Losartan Potassium 100 Mg Oral Tablet (Losartan potassium) ..... Take one tablet daily Carvedilol 25mg Tablets (Carvedilol) ..... Take 1 tablet by mouth twice daily Rico Carter [id number],S, Dhruv Nugent ra, MD [id number],S, Dhruv Nugent ra, MD [id number],S, Dhruv Nugent ra, MD [id number],SDhruv ra, MD [id number],SDhruv ra, MD Cardiology Dhruv Salvador Cardiology Dhruv Salvador Cardiology Dhruv Salvador Cardiology Dhruv Salvador Cardiology Dhruv Salvador Cardiology: B P today: 173/117 P rior BP: 160/52 (07/28/2021) Dhruv Stock MD Cardiology: W eight loss advised Dhruv Stock MD Cardiology:Will add spironolactone 25 mg once a day. BP today: 160/52 P rior BP: 150/110 (06/30/2021) The following medications were removed from the medication list: Carvedilol 25 Mg Tablet (Carvedilol) ..... Take 1 tablet by mouth twice a day Losartan 100 Mg Tablet (Losartan) ..... Take 1 tablet by mouth once a day Her updated medication list for this problem includes: Spironolactone 25 Mg Tablet (Spironolactone) ..... Take 1 tablet by mouth once a day Chlorthalidone 25 Mg Tablet (Chlorthalidone) ..... Take 1 tablet by mouth once a day Dhruv Stock MD Cardiology: T he following medications were removed from the medication list: Carvedilol 25 Mg Tablet (Carvedilol) ..... Take 1 tablet by mouth twice a day Losartan 100 Mg Tablet (Losartan) ..... Take 1 tablet by mouth once a day Her updated medication list for this problem includes: Spironolactone 25 Mg Tablet (Spironolactone) ..... Take 1 tablet by mouth once a day Chlorthalidone 25 Mg Tablet (Chlorthalidone) ..... Take 1 tablet by mouth once a day Dhruv Stock MD Cardiology Dhruv Salvador Cardiology Dhruv Salvador Cardiology: T he following medications were removed from the medication list: Carvedilol Unspecified Unspecified (Carvedilol) ..... Take 1 tablet by mouth once a day Her updated medication list for this problem includes: Chlorthalidone 25 Mg Tablet (Chlorthalidone) ..... Take 1 tablet by mouth once a day Carvedilol 25 Mg Tablet (Carvedilol) ..... Take 1 tablet by mouth twice a day Dhruv Stock MD Cardiology: B P today: 150/110 P rior BP: 170/100 (03/31/2021) The following medications were removed from the medication list: Carvedilol Unspecified Unspecified (Carvedilol) ..... Take 1 tablet by mouth once a day Her updated medication list for this problem includes: Losartan 100 Mg Tablet (Losartan) ..... Take 1 tablet by mouth once a day Chlorthalidone 25 Mg Tablet (Chlorthalidone) ..... Take 1 tablet by mouth once a day Carvedilol 25 Mg Tablet (Carvedilol) ..... Take 1 tablet by mouth twice a day Dhruv Stock MD Cardiology Dhruv Salvador Cardiology Rico Carter Cardiology: T he following medications were removed from the medication list: Carvedilol 25 Mg Tablet (Carvedilol) ..... Take 1 tablet by mouth twice a day Her updated medication list for this problem includes: Nifedipine 30 Mg Tablet Extended Release (Nifedipine) ..... Take 1 tablet by mouth once a day Losartan 100 Mg Tablet (Losartan) ..... Take 1 tablet by mouth once a day Nitroglycerin 0.4 Mg Tablet, Sublingual (Nitroglycerin) ..... Dissolve 1 tablet under tongue as needed Rico Carter Cardiology Rico Carter Cardiology: B P today: 170/100 P rior BP: 144/90 (09/02/2020) The following medications were removed from the medication list: Carvedilol 25 Mg Tablet (Carvedilol) ..... Take 1 tablet by mouth twice a day Her updated medication list for this problem includes: Losartan 100 Mg Tablet (Losartan) ..... Take 1 tablet by mouth once a day Rico Carter Cardiology Dhurv Salvador Cardiology: u nmable to obtain BP today due to not having an appropriately sized cuff Prior BP: 144/90 (09/02/2020) Her updated medication list for this problem includes: Losartan Potassium 100 Mg Oral Tablet (Losartan potassium) ..... Take one tablet daily Carvedilol 25mg Tablets (Carvedilol) ..... Take 1 tablet by mouth twice daily Dhruv Stock MD Cardiology: H er updated medication list for this problem includes: Nitroglycerin 0.4 Mg Sublingual Tablet Sublingual (Nitroglycerin) ..... Dissolve 1 t under the tongue q 5 minutes up to three ts prn for chest pain Losartan Potassium 100 Mg Oral Tablet (Losartan potassium) ..... Take one tablet daily Carvedilol 25mg Tablets (Carvedilol) ..... Take 1 tablet by mouth twice daily Dhruv Stock MD Cardiology Dhruv Salvador Cardiology: H er updated medication list for this problem includes: Nitroglycerin 0.4 Mg Sublingual Tablet Sublingual (Nitroglycerin) ..... Dissolve 1 t under the tongue q 5 minutes up to three ts prn for chest pain Carvedilol 25mg Tablets (Carvedilol) ..... Take 1 tablet by mouth twice daily Rico Carter Cardiology: H er updated medication list for this problem includes: Losartan Potassium 100 Mg Oral Tablet (Losartan potassium) ..... Take one tablet daily Carvedilol 25mg Tablets (Carvedilol) ..... Take 1 tablet by mouth twice daily BP today: 144/90 P rior BP: 146/80 (06/24/2020) Rico Carter Cardiology: H er updated medication list for this problem includes: Nitroglycerin 0.4 Mg Sublingual Tablet Sublingual (Nitroglycerin) ..... Dissolve 1 t under the tongue q 5 minutes up to three ts prn for chest pain Losartan Potassium 100 Mg Oral Tablet (Losartan potassium) ..... Take one tablet daily Carvedilol 25mg Tablets (Carvedilol) ..... Take 1 tablet by mouth twice daily [facility] follow up Dhruv desai MD Cardiology follow up Dhruv desai MD Cardiology follow up : T he following medications were removed from the medication list: Amlodipine Besylate 10 Mg Oral Tablet (Amlodipine besylate) ..... One tab by mouth daily Her updated medication list for this problem includes: Losartan Potassium 100 Mg Oral Tablet (Losartan potassium) ..... Take one tablet daily Carvedilol 25mg Tablets (Carvedilol) ..... Take 1 tablet by mouth twice daily Dhruv Stock MD Cardiology Follow up Dhruv desai MD Cardiology Follow up Dhruv desai MD Cardiology Follow up : B P today: 160/90 P rior BP: 164/91 (03/04/2020) Her updated medication list for this problem includes: Amlodipine Besylate 10 Mg Oral Tablet (Amlodipine besylate) ..... One tab by mouth daily Losartan Potassium 100 Mg Oral Tablet (Losartan potassium) ..... Take one tablet daily Carvedilol 25mg Tablets (Carvedilol) ..... Take 1 tablet by mouth twice daily Dhruv Stock MD Cardiology Follow up Dhruv desai MD Cardiology follow up [facility] follow up : T he following medications were removed from the medication list: Furosemide 40 Mg Oral Tablet (Furosemide) ..... Take 1 tab daily Her updated medication list for this problem includes: Amlodipine Besylate 5 Mg Oral Tablet (Amlodipine besylate) ..... One tab by mouth daily Nitroglycerin 0.4 Mg Sublingual Tablet Sublingual (Nitroglycerin) ..... Dissolve 1 t under the tongue q 5 minutes up to three ts prn for chest pain Losartan Potassium 100 Mg Oral Tablet (Losartan potassium) ..... Take one tablet daily Hydrochlorothiazide 25 Mg Oral Tablet (Hydrochlorothiazide) ..... Tk 1 t po d Carvedilol 25 Mg Oral Tablet (Carvedilol) ..... Tk 1 t po bid [facility] follow up : B P today: 164/91 P rior BP: 154/93 (12/04/2019) The following medications were removed from the medication list: Hydralazine Hcl 50 Mg Oral Tablet (Hydralazine hcl) ..... One tab by mouth twice daily Furosemide 40 Mg Oral Tablet (Furosemide) ..... Take 1 tab daily Her updated medication list for this problem includes: Amlodipine Besylate 5 Mg Oral Tablet (Amlodipine besylate) ..... One tab by mouth daily Losartan Potassium 100 Mg Oral Tablet (Losartan potassium) ..... Take one tablet daily Hydrochlorothiazide 25 Mg Oral Tablet (Hydrochlorothiazide) ..... Tk 1 t po d Carvedilol 25 Mg Oral Tablet (Carvedilol) ..... Tk 1 t po bid [facility] follow up [facility] follow up [facility] follow up Dhruv desai MD Cardiology follow up : B P today: 154/93 P rior BP: 150/84 (10/30/2019) Her updated medication list for this problem includes: Hydralazine Hcl 50 Mg Oral Tablet (Hydralazine hcl) ..... One tab by mouth twice daily Losartan Potassium 100 Mg Oral Tablet (Losartan potassium) ..... Take one tablet daily Hydrochlorothiazide 25 Mg Oral Tablet (Hydrochlorothiazide) ..... Tk 1 t po d Furosemide 40 Mg Oral Tablet (Furosemide) ..... Take 1 tab daily Carvedilol 25 Mg Oral Tablet (Carvedilol) ..... Tk 1 t po bid Dhruv Stock MD Cardiology follow up : H er updated medication list for this problem includes: Nitroglycerin 0.4 Mg Sublingual Tablet Sublingual (Nitroglycerin) ..... Dissolve 1 t under the tongue q 5 minutes up to three ts prn for chest pain Losartan Potassium 100 Mg Oral Tablet (Losartan potassium) ..... Take one tablet daily Hydrochlorothiazide 25 Mg Oral Tablet (Hydrochlorothiazide) ..... Tk 1 t po d Furosemide 40 Mg Oral Tablet (Furosemide) ..... Take 1 tab daily Carvedilol 25 Mg Oral Tablet (Carvedilol) ..... Tk 1 t po bid Dhruv Stock MD Cardiology follow up Dhruv desai MD Cardiology: H er updated medication list for this problem includes: Nitroglycerin 0.4 Mg Sublingual Tablet Sublingual (Nitroglycerin) ..... Dissolve 1 t under the tongue q 5 minutes up to three ts prn for chest pain Losartan Potassium 100 Mg Oral Tablet (Losartan potassium) ..... Take one tablet daily Hydrochlorothiazide 25 Mg Oral Tablet (Hydrochlorothiazide) ..... Tk 1 t po d Furosemide 40 Mg Oral Tablet (Furosemide) ..... Take 1 tab daily Carvedilol 25 Mg Oral Tablet (Carvedilol) ..... Tk 1 t po bid Dhruv Stock MD Cardiology [facility]: B P today: 150/84 P rior BP: 142/105 (09/25/2019) Her updated medication list for this problem includes: Losartan Potassium 100 Mg Oral Tablet (Losartan potassium) ..... Take one tablet daily Hydrochlorothiazide 25 Mg Oral Tablet (Hydrochlorothiazide) ..... Tk 1 t po d Furosemide 40 Mg Oral Tablet (Furosemide) ..... Take 1 tab daily Carvedilol 25 Mg Oral Tablet (Carvedilol) ..... Tk 1 t po bid Dhruv Stock MD Cardiology Dhru[facility]: H er updated medication list for this problem includes: Nitroglycerin 0.4 Mg Sublingual Tablet Sublingual (Nitroglycerin) ..... Dissolve 1 t under the tongue q 5 minutes up to three ts prn for chest pain Losartan Potassium 50 Mg Oral Tablet (Losartan potassium) ..... Take one tablet daily Hydrochlorothiazide 25 Mg Oral Tablet (Hydrochlorothiazide) ..... Tk 1 t po d Furosemide 40 Mg Oral Tablet (Furosemide) ..... Take 1 tab daily Carvedilol 25 Mg Oral Tablet (Carvedilol) ..... Tk 1 t po bid Dhruv Stock MD Cardiology [facility] Dhruv Salvador [facility]iology: B P today: 142/105 P rior BP: 128/80 (07/25/2019) Her updated medication list for this problem includes: Losartan Potassium 50 Mg Oral Tablet (Losartan potassium) ..... Take one tablet daily Hydrochlorothiazide 25 Mg Oral Tablet (Hydrochlorothiazide) ..... Tk 1 t po d Furosemide 40 Mg Oral Tablet (Furosemide) ..... Take 1 tab daily Carvedilol 25 Mg Oral Tablet (Carvedilol) ..... Tk 1 t po bid Dhruv Stock MD Cardiology: [facility] echo in 1 week steven thompson final decision regarding ICD at that time Dhruv Stock MD Cardiology: E F 10%. asx today l ifevest in place r eassess EF with echo soon Her updated medication list for this problem includes: Nitroglycerin 0.4 Mg Sublingual Tablet Sublingual (Nitroglycerin) ..... Dissolve 1 t under the tongue q 5 minutes up to three ts prn for chest pain Losartan Potassium 25 Mg Oral Tablet (Losartan potassium) ..... Take 1 tab daily Hydrochlorothiazide 25 Mg Oral Tablet (Hydrochlorothiazide) ..... Tk 1 t po d Furosemide 40 Mg Oral Tablet (Furosemide) ..... Take 1 tab daily Carvedilol 25 Mg Oral Tablet (Carvedilol) ..... Tk 1 t po bid Dhruv Stock MD Cardiology: w eight loss encouraged Dhruv Stock MD Cardiology: B P today: 128/80 Her updated medication list for this problem includes: Losartan Potassium 25 Mg Oral Tablet (Losartan potassium) ..... Take 1 tab daily Hydrochlorothiazide 25 Mg Oral Tablet (Hydrochlorothiazide) ..... Tk 1 t po d Furosemide 40 Mg Oral Tablet (Furosemide) ..... Take 1 tab daily Carvedilol 25 Mg Oral Tablet (Carvedilol) ..... Tk 1 t po bid Dhruv Stock MD Cardiology: H er updated medication list for this problem includes: Nitroglycerin 0.4 Mg Sublingual Tablet Sublingual (Nitroglycerin) ..... Dissolve 1 t under the tongue q 5 minutes up to three ts prn for chest pain Losartan Potassium 25 Mg Oral Tablet (Losartan potassium) ..... Take 1 tab daily Hydrochlorothiazide 25 Mg Oral Tablet (Hydrochlorothiazide) ..... Tk 1 t po d Furosemide 40 Mg Oral Tablet (Furosemide) ..... Take 1 tab daily Carvedilol 25 Mg Oral Tablet (Carvedilol) ..... Tk 1 t po bid Dhruv Stock MD Cardiology Dhruv Salvador Date Name Complete Echo Complete Echo Sleep Study Home Complete Echo Complete Echo Complete Echo Complete Echo HISTORY OF PROCEDURES Procedure Date Procedure Name Provider Procedure Notes S tatus EKG Dhruv Stock MD [facility] Device Check - Life vest Dhruv Stock MD completed EKG Dhruv Stock MD [facility] ed
--- OUTSIDE RECORDS SUMMARY | 2024-06-10 11:04 | XMS_ITS | Clinical Summary ---
Author Organization [facility] Address [address] [place] [id number] Care Team Providers Care Traffic Analysis Technician Name Role Phone Connor El MD Primary Care Provider [phone] Social History Tobacco Use Types Packs/Day Years Used Date Smoking Tobacco: Never Assessed Comments Unknown Sex and Gender Information Value Date Recorded Sex Assigned at Not on file Legal Sex Female 4:17 PM CDT Gender Identity Not on file Sexual Orientation Not on file Plan of Treatment Health Maintenance Due Date Last Done Comments Cervical Cancer Screening Pa p Smear (Age 30 to 64) Every 3 Years 1981 Annual Physical 1984 Hepatitis C 12/04/1999 DTaP, Tdap and Td Vaccines ( 1 - Tdap) 2000 Hepatitis B Vaccines (1 of 3 - 19+ 3-dose series) 2000 Cervical Cancer Screening Pa p with HPV Testing (Age 30 to 64) Every 5 Years 12/04/2011 Cervical Cancer Screening with HPV 12/04/2011 Mammogram Screening 2021 COVID-19 Vaccine (2023-2 5 season) 2023 Influenza Adult (#1) 2023 HPV Vaccines Aged Out No longer eligi ble based on patient's age to complete this topic Meningococcal B Vaccine Aged Out No l onger eligible based on patient's age to complete this topic Meningococcal Vaccine Aged Out No lashae saleem eligible based on patient's age to complete this topic Pneumococcal Vaccine: Pediat rics (0 to 5 Years) and At-Risk Patients (6 to 64 Years) Aged Out No longer eligible b ased on patient's age to complete this topic RSV Immunizations Under 20 Months Aged Out No longer eligible based on patient's age to complete this topic Care Teams Traffic Analysis Technician Relationship Specialty Start Date End Date Connor El MD [address] [place] [id number] PCP - General 06/19/15
[2024-06-10 11:08] VITALS: BP 181/114; PULSE 114; RESP 20; TEMP 36.6; O2SAT 100
[2024-06-10 11:30] LABS: BEDSIDEPREGUCG Negative (Negative)
[2024-06-10 11:40] VITALS: RESP 18; O2SAT 98
--- OUTSIDE RECORDS SUMMARY | 2024-06-10 11:43 | XMS_ITS | Clinical Summary ---
Author Organization [facility] Address [address] [place] [id number] Care Team Providers Care Lot Attendant Name Role Phone Connor El MD Primary Care Provider Social History Tobacco Use Types Packs/Day Years [...] age to complete this topic Care Teams Lot Attendant Relationship Specialty Start Date End Date Connor El MD [address] [place] [id number] PCP - General 06/19/15
--- OUTSIDE RECORDS SUMMARY | 2024-06-10 11:43 | XMS_ITS | Data Portability ---
[facility] Address [address] [place] [address] Care Team Providers Care Associate Professor Of English Name Role Phone CONNOR EL Primary Care Provider [phone] Assessment No assessment recorded. Plan of Treatment Reminders Order Date Submit Date Provider Last Modified By Organization Details Last Modified Time Details Appointments None recorded. Lab HbA1c (hemoglobi n A1c), blood 2021 [facility] ([facility]), [address] [place], [address], 13:50:25 CMP, serum or plasma 2021 [facility] ([facility]), [address] [place], [address], 13:50:24 lipid panel w/ direct LDL, serum 2021 [facility] ([facility]), [address] [place], [address], 13:50:25 CBC w/ auto diff 2021 [facility] ([facility]), [address] [place], [address], 13:50:25 TSH, serum, reflex free T4 2021 [facility] ([facility]), [address], [place], [address], 13:50:25 vitamin D, 25-hydroxy , total, serum [facility] [address], [place], [address], 13:50:25 HbA1c (hemoglobi n A1c), blood [facility] [address], [place], [address], 16:40:41 CMP, serum or plasma 2021 [facility] [address], [place], [address], 16:40:41 lipid panel w/ direct LDL, serum 2021 [facility] ([facility]mit [facility]), [address], [place], [address], 16:40:41 CBC w/ auto diff 2021 [facility] ([facility]), [address], [place], [address], 16:40:41 TSH, serum, reflex free T4 2021 [facility] [address], [place], [address], 16:40:41 vitamin D, 25-hydroxy , total, serum 2021 [facility] [address], [place], [address], 16:40:[address]/dietiti an referral 2021 [facility] Not available 13:55:[address]/dietiti an referral 2021 [facility] Not available 11:20:41 Procedures None recorded. Surgeries None recorded. Imaging None recorded. Medication Orders indomethac in ER 75 mg capsule,ex tended release 2021 [facility] #[id number], [address], [place], [id number], 15:52:22 pantoprazo le 40 mg tablet,del ayed release 2021 [facility] #38004, [address], [place], [id number], 15:48:59 Linzess 145 mcg capsule 2021 [facility] #42236, [address], [place], [id number], 15:49:57 montelukas t 10 mg tablet 2021 [facility] #87352, [address], [place], [id number], 13:36:54 cyclobenza earnestine 10 mg tablet 2021 [facility] #19318, [address], [place], [id number], 13:36:53 gabapentin 300 mg capsule 2021 [facility] [id number], [id number], 13:36:55 pantoprazo le 40 mg tablet,del ayed release 2021 [facility] #79948, [address], [place], [id number], 13:36:52 famotidine 20 mg tablet 2021 [facility] #78968, [address], [place], [id number], 13:55:13 diphenhydr amine 50 mg capsule 2021 [facility] #23718, [address], [place], [id number], 13:36:55 Colace 100 mg capsule 2021 [facility] #79859, [address], [place], [id number], 13:36:53 montelukas t 10 mg tablet 2021 [facility] #87826, [address], [place], [id number], 16:25:39 cyclobenza earnestine 10 mg tablet 2021 [facility] #97528, [address], [place], [id number], 16:25:41 gabapentin 300 mg capsule 2021 [facility] #48782, [address], [place], [id number], 16:25:39 pantoprazo le 40 mg tablet,del ayed release 2021 [facility] #01209, [address], [place], [id number], 16:25:41 diphenhydr amine 50 mg capsule 2021 [facility] #51803, [address], [place], [id number], 16:25:38 Colace 100 mg capsule 2021 [facility] #31732, [address], [place], [id number], 16:25:40 montelukas t 10 mg tablet 2021 [facility] #11119, [address], [place], [id number], 10:47:48 Zithromax Z-Julio 250 mg tablet 2021 [facility], [address], [place], [id number], 10:47:51 cyclobenza earnestine 10 mg tablet 2021 [facility] #42284, [address], [place], [id number], 10:47:45 gabapentin 100 mg capsule 2021 [facility] #02643, [address], [place], [id number], 10:47:46 pantoprazo le 40 mg tablet,del ayed release 2021 [facility]68213, [address], [place], [id number], 10:47:47 diphenhydr amine 50 mg capsule 2021 [place] [facility]79445, [address], [place], [id number], 10:47:48 Colace 100 mg capsule 2021 [facility] #79383, [address], [place], [id number], 10:47:50 chlorthali done 25 mg tablet 2021 [facility] #92509, [address], [place], [id number], 10:47:46 potassium chloride ER 10 mEq capsule,ex tended release 2021 [facility] #77913, [address], [place], [id number], 10:47:51 Patient TargetsNo targets recorded. Patient Instructions Encounter Date Encounter Id Patient Instructions Last Modified By Organization Details Last Modified Time 08/08/2021 [id number] allergies: care instructions Not available 08/08/2021 10:47:35 managing your allergies: care instructions Not available 08/08/2021 10:47:35 back care and preventing injuries: care instructions Not available 08/08/2021 10:47:35 gastroesophageal reflux disease (GERD): care instructions Not available 08/08/2021 10:47:34 sleep apnea: car e instructions Not available 08/08/2021 10:47:35 constipation: ca re instructions Not available 08/08/2021 10:47:35 When You Want to Lose Weight: Care Instructions Not available 08/08/2021 10:47:34 A healthy lifest yle: care instructions Not available 08/08/2021 10:47:34 learning about h igh blood pressure Not available 08/08/2021 10:47:35 12/10/2021 [id number] allergies: care instructions Not available 12/10/2021 16:25:31 managing your allergies: care instructions Not available 12/10/2021 16:25:31 back care and preventing injuries: care instructions Not available 12/10/2021 16:25:30 gastroesophageal reflux disease (GERD): care instructions Not available 12/10/2021 16:25:30 sleep apnea: car e instructions Not available 12/10/2021 16:25:31 A healthy lifest yle: care instructions Not available 12/10/2021 16:25:31 constipation: ca re instructions Not available 12/10/2021 16:25:30 learning about h igh blood pressure Not available 12/10/2021 16:25:30 01/09/2022 [id number] allergies: care instructions Not available 01/09/2022 13:36:42 managing your allergies: care instructions Not available 01/09/2022 13:36:42 back care and preventing injuries: care instructions Not available 01/09/2022 13:36:42 gastroesophageal reflux disease (GERD): care instructions Not available 01/09/2022 13:36:42 sleep apnea: car e instructions Not available 01/09/2022 13:36:42 A healthy lifest yle: care instructions Not available 01/09/2022 13:36:42 constipation: ca re instructions Not available 01/09/2022 13:36:41 learning about h igh blood pressure Not available 01/09/2022 13:36:41 03/12/2022 [id number] constipation: ca re instructions Not available 03/12/2022 15:48:45 back care and preventing injuries: care instructions Not available 03/12/2022 15:48:45 gastroesophageal reflux disease (GERD): care instructions Not available 03/12/2022 15:48:45 learning about h igh blood pressure Not available 03/12/2022 15:48:45 Reason for Referral Sexologist/dietitian Refer ral for Obesity Referring Physician: Connor El [facility], Encounter Date: 08/08/2021 Sexologist/dietitian Refer ral for Obesity Referring Physician: Connor El [facility], Encounter Date: 01/09/2022 Results Created Date Observation Date Name Description Value Unit Range Abnormal Flag Note LastModifiedBy Organization Detail LastModifiedTime 03/17/20 22 03/17/2022 stres s echoc ardio gram No observ ation record ed. [facility] [address], [place], [address], 03/24/2022 09:51:09 Result Notes None recorded. Problems Name Problem SNOMED Code Status Onset Date Resolution Date Notes Provider Name and Address Organization Details Recorded Time Acute conjunctivit is 36158271 Active 2019 Not Available [facility] 21:19:44 Gastroesopha geal reflux disease 226691974 Active 2021 Jarrett Laboy MA null, [place] - [facility] 2 14:33:06 Constipation 19333785 Active 2021 Jarrett Laboy [place], [place] - [facility] 2 14:33:13 Sleep apnea 46056160 Active 2021 JESSIKA Seg[place], [place] - [facility] 2 14:33:27 Low back pain 066110135 Active 2021 Jarrett Laboy [place], [place] [facility] 2 14:33:42 Dilated cardiomyopat hy 734048758 Active 2021 JESSIKA [place], [place] - [facility] 2 14:34:15 Allergic rhinitis 81302881 Active 2021 Jarrett Laboy MA null, [facility] 2 14:34:23 Musculoskele adebayo pain 266978912 Active 2021 Jarrett Laboy MA null, [facility] 2 14:36:03 Essential hypertension 00322344 Active Not Available [facility] 21:19:44 Amenorrhea 67269521 Active Not Available [facility] 21:19:44 Hypertensive disorder 74505227 Active Not Available [facility] 21:19:44 Obesity 534438339 Active Not Available [facility] 21:19:43 Notes:Some problems listed i n Documents: #[id number], #[id number], #[id number], #[id number] could not be added to this patient's chart. Please review these documents and add these problems to the patient's chart manually as needed. Problem Notes None recorded. Procedures Surgical History Date Name Laterality Status Provider Name and Address Organization Details Recorded Time 3 Caesarean Section completed Mary Martin MA [facility] 04/11/2014 13:07:47 2 Caesarean Section completed Mary Martin MA [facility] 04/11/2014 13:07:47 0 Caesarean Section completed Mary Martin MA [facility] 04/11/2014 13:07:47 7 Caesarean Section completed Mary Martin MA [facility] 04/11/2014 13:07:47 Imaging Results Imaging Date Name Status LastModified by Organization Details LastModified Time 03/17/2022 stress echocardiogram completed [facility] [address], [place], [address], 03/24/2022 09:51:09 Procedure Notes None recorded. Medical Equipment None Reported. Allergies No known drug allergies Medications Name Sig Start Date Stop Date Status Note LastModified by Organization Details LastModified Time losartan 50 mg tablet 06/27 completed Not Available Not Available Not Available cyclobenzap rine 10 mg tablet TAKE 1 TABLET BY MOUTH THREE TIMES DAILY active Not Available Not Available No t Available furosemide 40 mg tablet 06/27 completed Not Available Not Available Not Available promethazin e-DM 6.25 mg-15 mg/5 mL oral syrup 06/27 completed Not Available Not Available Not Available carvedilol 25 mg tablet TAKE 1 TABLET BY MOUTH TWICE DAILY active Not Available Not Available No t Available potassium chloride ER 10 mEq capsule,ext ended release Take 1 capsule every day by oral route for 90 days. 2021 active Not Available Not Available Not Avai lable labetalol 200 mg tablet Take 1 tablet every day by oral route. 06/27 completed Not Available Not Available Not Available albuterol sulfate 2.5 mg/3 mL (0.083 %) solution for nebulizatio n Inhale 3 mL 3 times a day by nebulizat ion route. 06/27 completed Not Available Not Available Not Available cetirizine 10 mg tablet Take 1 tablet every day by oral route for 90 days. 2021 active Not Available Not Available Not Avai lable azithromyci n 250 mg tablet TAKE 2 TABLETS (500 MG) BY ORAL ROUTE ONCE DAILY FOR 1 DAY THEN 1 TABLET (250 MG) BY ORAL ROUTE ONCE DAILY FOR 4 DAYS active Not Available Not Available No t Available ibuprofen 800 mg tablet TAKE 1-3 TABLETS BY MOUTH EVERY DAY NEEDED active Not Available Not Available No t Available tizanidine 4 mg tablet TAKE 1 TABLET BY MOUTH EVERY 8 HOURS NEEDED active Not Available Not Available No t Available fluconazole 150 mg tablet TAKE 1 TABLET BY MOUTH 1 TIME FOR 1 DAY active Not Available Not Available No t Available Adipex-P 37.5 mg tablet Take 1 tablet every day by oral route as directed for 30 days. 2014 active Not Available Not Available Not Avai lable meloxicam 15 mg tablet Take 1 tablet every day by oral route for 30 days. 06/27 completed Not Available Not Available Not Available famotidine 40 mg tablet Take 1 tablet every day by oral route for 90 days. 06/27 completed Not Available Not Available Not Available prednisone 20 mg tablet 06/27 completed Not Available Not Available Not Available Tubersol 5 tub. unit/0.1 mL intradermal injection solution 2014 active Not Available Not Available Not Avai lable clotrimazol e 1 % vaginal cream INSERT ONE APPLICATO RFUL VAGINALLY AT BEDTIME FOR 7 DAYS. active Not Available Not Available No t Available meclizine 12.5 mg tablet TK 1 T PO TID PRN 06/27 completed Not Available Not Available Not Available potassium chloride ER 10 mEq tablet,exte nded release TAKE 1 CAPSULE BY MOUTH EVERY DAY active Not Available Not Available No t Available nifedipine ER 30 mg tablet,exte nded release TAKE 1 TABLET BY MOUTH EVERY DAY active Not Available Not Available No t Available chlorthalid one 25 mg tablet TAKE 1 TABLET BY MOUTH EVERY DAY active Not Available Not Available No t Available amlodipine 5 mg tablet TAKE 1 TABLET BY MOUTH DAILY 06/27 completed Not Available Not Available Not Available ciprofloxac in 500 mg tablet 06/27 completed Not Available Not Available Not Available sulfamethox azole 800 mg-trimetho prim 160 mg tablet TAKE 1 TABLET BY MOUTH EVERY 12 HOURS FOR 10 DAYS active Not Available Not Available No t Available spironolact one 25 mg tablet TAKE 1 TABLET BY MOUTH EVERY DAY active Not Available Not Available No t Available baclofen 20 mg tablet TAKE 1 TABLET BY MOUTH TWICE DAILY NEEDED 06/27 completed Not Available Not Available Not Available ketorolac 10 mg tablet TAKE 1 TABLET BY MOUTH EVERY 4 TO 6 HOURS FOR UP TO 5 DAYS TOTAL USE. MAX OF 4 TABLETS PER DAY 06/27 completed Not Available Not Available Not Available clonidine HCl 0.2 mg tablet 06/27 completed Not Available Not Available Not Available amoxicillin 875 mg tablet TAKE 1 TABLET BY MOUTH EVERY 12 HOURS FOR 10 DAYS 06/27 completed Not Available Not Available Not Available famotidine 20 mg tablet TAKE 1 TABLET BY MOUTH TWICE DAILY active Not Available Not Available No t Available ciprofloxac in 0.3 % eye drops INSTILL 1 DROP INTO AFFECTED EYE(S) BY OPHTHALMI C ROUTE EVERY 2 HOURSWHIL E AWAKE FOR 2 DAYS THEN 1 DROP EVERY 4 HRS WHILE AWAKE FOR 5 DAYS 06/27 completed Not Available Not Available Not Available phenazopyri dine 100 mg tablet Take 1 tablet 3 times a day by oral route as needed for 3 days. 06/27 completed Not Available Not Available Not Available baclofen 10 mg tablet TAKE 1 TABLET BY MOUTH TWICE DAILY 06/27 completed Not Available Not Available Not Available amlodipine 10 mg tablet TAKE 1 TABLET BY MOUTH DAILY 06/27 completed Not Available Not Available Not Available cephalexin 500 mg capsule 06/27 completed Not Available Not Available Not Available pantoprazol e 40 mg tablet,venkata yed release TAKE 1 TABLET BY MOUTH EVERY DAY active Not Available Not Available No t Available ranitidine 150 mg tablet active Not Available Not Available Not Available losartan 25 mg tablet 06/27 completed Not Available Not Available Not Available nitroglycer in 0.4 mg sublingual tablet 06/27 completed Not Available Not Available Not Available docusate sodium 100 mg capsule Take 2 capsules every day by oral route for 90 days. active Not Available Not Available No t Available gabapentin 300 mg capsule TAKE 1 CAPSULE BY MOUTH THREE TIMES DAILY active Not Available Not Available No t Available omeprazole 20 mg capsule,del ayed release TAKE 1 CAPSULE BY MOUTH EVERY DAY active Not Available Not Available No t Available amoxicillin 250 mg capsule TAKE 1 CAPSULE BY MOUTH EVERY 8 HOURS UNTIL ALL TAKEN active Not Available Not Available No t Available montelukast 10 mg tablet Take 1 tablet every day by oral route for 90 days. 2021 active Not Available Not Available Not Avai lable hydralazine 50 mg tablet 06/27 completed Not Available Not Available Not Available hydrochloro thiazide 25 mg tablet 06/27 completed Not Available Not Available Not Available gabapentin 100 mg capsule TAKE 1 CAPSULE BY MOUTH THREE TIMES DAILY active Not Available Not Available No t Available levofloxaci n 750 mg tablet 06/27 completed Not Available Not Available Not Available albuterol sulfate HFA 90 mcg/actuati on aerosol inhaler 06/27 completed Not Available Not Available Not Available indomethaci n ER 75 mg capsule,ext ended release TAKE 1 CAPSULE BY MOUTH TWICE DAILY active Not Available Not Available No t Available losartan 100 mg tablet TAKE 1 TABLET BY MOUTH DAILY active Not Available Not Available No t Available fluticasone propionate 50 mcg/actuati on nasal spray,suspe nsion Beckemeyer 1 spray every day by intranasa l route for 90 days. 2021 active Not Available Not Available Not Avai lable naproxen 500 mg tablet TAKE 1 TABLET BY MOUTH WITH FOOD TWICE DAILY active Not Available Not Available No t Available amoxicillin 875 mg-potassiu m clavulanate 125 mg tablet TAKE 1 TABLET BY MOUTH EVERY 12 HOURS 10/21 completed Not Available Not Available Not Available nitrofurant oin monohydrate /macrocryst als 100 mg capsule TAKE ONE CAPSULE BY MOUTH EVERY 12 HOURS active Not Available Not Available No t Available Banophen 50 mg capsule Take 1 capsule every day by oral route for 30 days. active Not Available Not Available No t Available Linzess 145 mcg capsule Take 1 capsule every day by oral route for 30 days. 2021 active Not Available Not Available Not Avai lable Vitals Date Recorded Body height Provider Name an d Address Organization Details Last Updated DateTime 08/08/2021 149.86 cm Jarrett Laboy MA [facility] 08/08/2021 10:01:17 Date Recorded Body height Provider Name an d Address Organization Details Last Updated DateTime 12/10/2021 149.86 cm Jarrett Laboy MA [facility] 12/10/2021 14:38:12 Date Recorded Body height Body mass index (BMI) Body weight Oxygen saturation Oxygen saturation in Arterial blood by Pulse oximetry Heart rate Respiratory rate Body temperature Systolic blood pressure Diastolic blood pressure Provider Name and Address Organization Details Last Updated DateTime 149.86 cm 68.3 kg/m2 052244. 62 g 94 % 94 % 79 /min 18 /min 98.3 [degF] 207 mm[Hg] 87 mm[Hg] Vashti Laboy MA [facility] 13:17:32 Date Recorded Body height Provider Name an d Address Organization Details Last Updated DateTime 03/12/2022 149.86 cm Jarrett Laboy MA [facility] 03/12/2022 12:23:20 Social History Question Answer Notes LastModified by Organizat ion Details LastModified Time Tobacco Smoking Status [facility] 04[facility]11/2014 13:07:46 What Is Your Level Of Alcohol Consumption? None [email or web address] Information not available 04/11/2014 What Is Your Level Of Caffeine Consumption? Occasional Information not available 04/11/2014 Which Illicit Or Recreational Drugs Have You Used? Patient Denied Information not available 03/28/2015 Education 12 Information no t available 03/28/2015 Are There Any Guns Present In Your Home? No Information not available 06/17/2020 Marital Status Single Informatio n not available 03/28/2015 What Was The Date Of Your Most Recent Tobacco Screening? 06/17/2020 Information not available 06/17/2020 What Is Your Relationship Status? Single Information not available 06/17/2020 Do You Use Your Seat Belt Or Car Seat Routinely? Yes Information not available 06/17/2020 Do You Have Smoke And Carbon Monoxide Detectors In Your Home? Yes Information not available 06/17/2020 Are You Passively Exposed To Smoke? No Information no t available 06/17/2020 Do You Use Sunscreen Routinely? Yes Information not available 06/17/2020 Sex: Female Functional Status None recorded. Mental Status None recorded. Family History Relationship Description Onset Age of this Age Resolved Age Notes LastModified by Organization Details LastModified Time Mother Hypertensive disorder Not available 2015 15:57:37 Medical History Condition Response Coronary Artery Disease N Other N High Blood Pressure Y Atrial Fibrillation N Thyroid Problems N Kidney or Bladder Problems N Blood Clots N COPD N Depression N GI Problems N Skin Problems N Anemia N Heart Attack ([place]) N Anxiety Disorder N Diabetes N Muscle, Joint, or Bone Problems N Seizures/Epilepsy N Acid Reflux (GERD) N Cancer N Stroke N Asthma N Allergies N High Cholesterol N Hepatitis N Liver Disease N Headaches N Heart Failure N Osteoporosis N Gynecological History Statement/Question Response Abnormal Pap N Flow Moderate STIs/STDs N HPV Vaccine N Duration of Flow (days) 7 Age at Menarche 13 Current Control Method None Age at First Child 16 Frequency of Cycle (Q days) 28 Sexually Active? N Date of Last Pap Smear Sexual Problems? N LMP Approximate Desired Control Method Other Obstetrics History GPAL:G 4 P 4 0 0 4 Type Value Full Term 4 Living 4 Total 4 Past Encounters Encounter ID Performer Location Encounter Start Date Encounter Closed Date Diagnosis/Indication Diagnosis SNOMED-CT Code Diagnosis ICD10 Code Diagnosis Note [id number] [address] 04/11/2014 12:08:03 04/16/2014 10:45:30 Obesity 233705531 diet and exercise [id number] Connor El MD [address] [address] 10/18/2014 16:41:15 10/19/2014 10:30:03 Essential hypertension 72765114 Obesity 988869374 diet a nd exercise.. . now 291.. [id number] [facility] [address] [facility] [address] [place] [address] 12/21/2014 11:43:28 12/21/2014 12:05:51 Tuberculosis screening 126790636 Z11.1 [id number] Carmen [address] [address] 03/28/2015 15:01:03 04/04/2015 18:13:31 Amenorrhea 74646371 N91.2 Discussed risk for previa and acreta with increased risk for c/hys. RTC 2 weeks for New OB. Proof of pregnacy, dental referral and medication list given. Hypertensive disorder 38 894207 I10 Switch to labetolol 200 mg daily and increase as needed. Discussed increased risk for pre-eclamp aden/eclamp aden. [id number] Zehra Santillan [employer] [address] [place] [address] [address] [place] [address] 01/21/2018 13:44:26 01/27/2018 11:50:41 History and physical examination, pre-employment 725906056 Z02.1 negative assessment . no restrictio ns indicated. denies asthma, heart disease and sickle cell. [id number] Ramiro Ford MD [address] [address] 06/28/2019 16:45:45 06/29/2019 09:21:59 Asthma 366740445 J45.367 [id number] Connor El MD [address] [address] 09/01/2019 11:49:13 09/04/2019 06:59:08 Congestive heart failure 14256582 I50.9 follow up with ...EF was 10% as of 07-25-2019 ... Essential hypertension 42248124 I10 meds and refill... losartan 25 mg po daily... coreg 25 mg po BID... lasix 40 mg po daily.... HCTZ 25 mg po daily... Obesity 357886739 E66.9 diet and exercise.. . follow up.. [id number] Connor El MD [address] [address] 09/26/2019 15:28:54 09/27/2019 03:56:00 Urinary tract infectious disease 04572685 N39.0 meds an follow up... [id number] Jarrett Laboy MA [address] [address] 11/06/2019 11:25:24 12/08/2019 12:00:45 [id number] Connor El MD [place] [id number] 12/12/2019 11:39:16 12/13/2019 07:23:16 Polyuria 61717200 R35.8 meds and follow up... Dilated cardiomyopathy 833538848 I42.0 follow up with cardiology ... [id number] Mark Egan PA-C [address] [address] 01/25/2020 17:45:34 01/26/2020 07:02:37 Acute conjunctivitis 57182221 H10.32 [id number] Ramiro Ford MD [address] [address] 01/31/2020 17:33:29 02/05/2020 14:14:02 Vertigo 615922982 R42 [id number] Connor El MD [address] [address] 02/09/2020 10:52:22 02/12/2020 05:45:54 Gastroesophageal reflux disease 352196570 K21.9 meds and folow up.. Allergic rhinitis 107223 04 J30.9 meds and follow up... [id number] Connor El MD [address] [address] 02/20/2020 12:09:32 02/21/2020 06:55:47 Gastroesophageal reflux disease 591203939 K21.9 meds and folow up.. Allergic rhinitis 789915 04 J30.9 stop pills and follow up... [id number] Connor El MD [address] [address] 03/05/2020 12:43:36 03/06/2020 06:08:41 Essential hypertension 11049490 I10 meds and refill... losartan 25 mg po daily... coreg 25 mg po BID/losart an 100 mg po daily/amlo dipine 5 mg po daily... Gastroesop hageal reflux disease 711324220 K21.9 meds and follow up.. Low back pain 011424756 M54.5 meds and follow up.. [id number] Connor El MD [address] [address] 04/16/2020 11:01:14 04/17/2020 06:19:21 Essential hypertension 32684742 I10 meds and refill.... . coreg 25 mg po BID/losart an 25 mg po daily/amlo dipine 5 mg po daily... EF = 35 % Gastroesop hageal reflux disease 081326405 K21.9 meds and follow up.. Low back pain 471529640 M54.5 meds and follow up.. Obesity 146867747 E66.9 diet and exercise.. . follow up.. Allergic rhinitis 195540 J30.9 stop pills and follow up... [id number] Connor El MD [address] [address] 05/17/2020 12:49:02 05/20/2020 06:37:54 Essential hypertension 56490850 I10 meds and refill.... . coreg 25 mg po BID/losart an 25 mg po daily/amlo dipine 5 mg po daily... EF =50% per cardiology note 11-29-19 EF = 50%.. Gastroesop hageal reflux disease 203588806 K21.9 meds and follow up.. Low back pain 305856533 M54.5 meds and follow up.. Obesity 435953908 E66.9 diet and exercise.. . follow up.. Allergic rhinitis 871030 J30.9 stop pills and follow up... use nose spray daily... Musculoskeletal pain 279 008634 M79.10 will refer to PT if sx persistent ... [id number] Ramiro Ford MD [place] [address] 3 06/05/2020 17:43:01 06/08/2020 22:01:53 [id number] Connor El MD [place] [address] 3 06/17/2020 10:09:02 06/18/2020 06:00:22 Essential hypertension 13633203 I10 meds and refill.... . coreg 25 mg po BID/losart an 25 mg po daily/amlo dipine 5 mg po daily... EF =50% per cardiology note 11-29-19 EF = 50%.. Gastroesop hageal reflux disease 186528119 K21.9 meds and follow up.. Low back pain 930605572 M54.5 meds and follow up.. Obesity 635549544 E66.9 diet and exercise.. . follow up.. Allergic rhinitis 221622 04 J30.9 stop pills and follow up... use nose spray daily... Musculoskeletal pain 279 512220 M79.10 will refer to PT if sx persistent ... Dilated cardiomyopathy 112073178 I42.0 follow up with cardiology ... [id number] Connor El MD [address] [address] 06/25/2020 17:02:19 06/26/2020 05:34:05 Essential hypertension 56217581 I10 meds and refill.... . coreg 25 mg po BID/losart an 25 mg po daily/amlo dipine 5 mg po daily... EF =50% per cardiology note 11-29-19 EF = 50%... Gastroesop hageal reflux disease 346167479 K21.9 meds and follow up.. Low back pain 202391340 M54.5 meds and follow up.. Obesity 686409314 E66.9 diet and exercise.. . follow up.. Allergic rhinitis 313456 04 J30.9 stop pills and follow up... use nose spray daily... Musculoskeletal pain 279 581457 M79.10 will refer to PT if sx persistent ... Dilated cardiomyopathy 468217450 I42.0 follow up with cardiology ... doesnt want informatio n known at work.. was told etiher take note to return or see cardiology to support longer periods off... [id number] [facility] [address] [place] [address] 06/27/2020 15:14:20 06/27/2020 16:53:22 Acute sinusitis 60551662 J01.90 Chronic pharyngitis 1400 04 J31.2 [id number] Edgar Mcdaniels MD [facility] [address] [place] [address] 08/01/2020 14:48:07 08/02/2020 10:40:02 Acute sinusitis 88840310 J01.90 Dysfunctio n of bilateral eustachian tubes 1752324950 656992 H69.93 continue Flonase and antihistam [place] [id number] [facility] [address] [place] [address] 09/05/2020 14:32:54 09/05/2020 15:23:29 Chronic sinusitis 98928863 J32.9 Chronic rhinitis 6414411 6 J31.0 [id number] Edgar Mcdaniels MD [facility] [address] [place] [address] 10/21/2020 16:38:24 10/22/2020 10:26:25 Chronic sinusitis 12667540 J32.9 i recommende d surgery she is going to think about it [id number] Connor El MD [address] [address] 04/03/2021 10:18:15 04/04/2021 07:14:43 Essential hypertension 64812304 I10 meds and refill.... . coreg 25 mg po BID/losart an 25 mg po daily/amlo dipine 5 mg po daily... EF =50% per cardiology note 11-29-19 EF = 50%... Sleep apnea 76563715 G47 .30 refer... Gastroesop hageal reflux disease 449050494 K21.9 meds and follow up.. Low back pain 128356024 M54.50 meds and follow up.. Obesity 585960957 E66.9 diet and exercise.. . follow up... Allergic rhinitis 323279 04 J30.9 stop pills and follow up... use nose spray daily... Musculoskeletal pain 279 105965 M79.10 will refer to PT if sx persistent ... Dilated cardiomyopathy 096049836 I42.0 follow up with cardiology ... doesnt want informatio n known at work.. was told either take note to return or see cardiology to support longer periods off... [id number] Connor El MD [place] [address] 3 06/24/2021 14:27:47 06/25/2021 18:30:24 Essential hypertension 34254438 I10 meds and refill.... . coreg 25 mg po BID/losart an 25 mg po daily/amlo dipine 5 mg po daily... EF =50% per cardiology note 11-29-19 EF = 50%... Sleep apnea 35697494 G47 .30 refer... Gastroesop hageal reflux disease 265213636 K21.9 meds and follow up.. Low back pain 359584970 M54.50 meds and follow up.. Obesity 828106479 E66.9 diet and exercise.. . follow up... Allergic rhinitis 896898 04 J30.9 stop pills and follow up... use nose spray daily... Musculoskeletal pain 279 597281 M79.10 will refer to PT if sx persistent ... Dilated cardiomyopathy 287239498 I42.0 follow up with cardiology ... doesnt want informatio n known at work.. was told either take note to return or see cardiology to support longer periods off... [id number] Connor El MD [address] [address] 07/08/2021 12:43:26 07/10/2021 14:44:25 Essential hypertension 35059034 I10 meds and refill.... ... EF =50% per cardiology note 11-29-19 EF = 50%... Sleep apnea 24929434 G47 .30 refer... Gastroesop hageal reflux disease 519176679 K21.9 meds and follow up.. Low back pain 533523860 M54.50 meds and follow up.. Obesity 980887016 E66.9 diet and exercise.. . follow up... Allergic rhinitis 144728 04 J30.9 stop pills and follow up... use nose spray daily... Musculoskeletal pain 279 126515 M79.10 will refer to PT if sx persistent ... Dilated cardiomyopathy 000596209 I42.0 follow up with cardiology ... doesnt want informatio n known at work.. was told either take note to return or see cardiology to support longer periods off... Constipation 42787371 K5 9.00 [id number] Connor El MD [address] [address] 08/08/2021 09:40:42 08/11/2021 13:32:42 Essential hypertension 40246450 I10 meds and refill.... ... EF =50% per cardiology note 11-29-19 EF = 50%... Sleep apnea 78000846 G47 .30 refer... Gastroesop hageal reflux disease 311514520 K21.9 meds and follow up.. Low back pain 787492813 M54.50 meds and follow up.. Obesity 418058722 E66.9 diet and exercise.. . follow up... Allergic rhinitis 116369 04 J30.9 stop pills and follow up... use nose spray daily... Musculoskeletal pain 279 803767 M79.10 will refer to PT if sx persistent ... Dilated cardiomyopathy 300127618 I42.0 follow up with cardiology ... doesnt want informatio n known at work.. was told either take note to return or see cardiology to support longer periods off... Constipation 38304163 K5 9.00 meds and follow up...zpak [id number] Ramiro Ford MD [address] [place] [address] 11/12/2021 18:31:56 11/16/2021 12:56:48 [id number] Connor El MD [address] [address] 12/10/2021 14:02:59 12/11/2021 08:24:41 Essential hypertension 27705751 I10 meds and refill.... ... EF =50% per cardiology note 11-29-19 EF = 50%... losartan to be continued. .. Sleep apnea 43241704 G47 .30 refer with appt next week... Gastroesop hageal reflux disease 732596951 K21.9 meds and follow up.. Low back pain 743243948 M54.50 meds and follow up..increa se muscle relaxer number... increase gabapentin ... Obesity 347855923 E66.9 diet and exercise.. . follow up... Allergic rhinitis 101992 04 J30.9 stop pills and follow up... use nose spray daily... Musculoskeletal pain 279 539032 M79.10 will refer to PT if sx persistent ... Dilated cardiomyopathy 220612908 I42.0 follow up with cardiology ... doesnt want informatio n known at work.. was told either take note to return or see cardiology to support longer periods off... Constipation 67034170 K5 9.00 meds and follow up...zpak [id number] Connor El MD [address] [address] 01/09/2022 12:59:11 01/12/2022 08:17:20 Essential hypertension 25411235 I10 meds and refill.... ... EF =50% per cardiology note 11-29-19 EF = 50%... losartan to be continued. .. Sleep apnea 11329601 G47 .30 Gastroesop hageal reflux disease 174472376 K21.9 meds and follow up.. famotadine for breakthrou gh... Low back pain 445565636 M54.50 meds and follow up..increa se muscle relaxer number... increase gabapentin ... Obesity 388662004 E66.9 diet and exercise.. . follow up... Allergic rhinitis 536873 04 J30.9 stop pills and follow up... use nose spray daily... Musculoskeletal pain 279 439580 M79.10 will refer to PT if sx persistent ... Dilated cardiomyopathy 959137020 I42.0 follow up with cardiology ... doesnt want informatio n known at work.. was told either take note to return or see cardiology to support longer periods off... Constipation 08993486 K5 9.00 meds and follow up...zpak [id number] Connor El MD [address] [address] 03/12/2022 11:00:27 03/12/2022 21:04:38 Essential hypertension 62307027 I10 meds and refill.... ... EF =50% per cardiology note 11-29-19 EF = 50%... Gastroesop hageal reflux disease 748941581 K21.9 meds and follow up.. for breakthrou gh... Constipation 47863817 K5 9.00 meds and follow up... will give Linzess samples when I return in Low back pain 618513855 M54.50 meds and follow up..increa se muscle relaxer number.. Health Concerns Section Related Observation LastModified by Organization Detai ls LastModified Time None Recorded Concern Status LastModified by Organization Details LastModified Time None Recorded Advance Directives Directive None Recorded Payers Encounter Date Sequence Insurance Name Policy Number Policy Mullins Covered Member ID Mullins Member ID Guarantor Name 08/08/2021 1 [facility] ON OR AFTER 09/19/20 (MEDICAID REPLACEMENT - HMO) Francine Springer [id number] Francine Springer 08/08/2021 1 [facility] ON OR AFTER 09/19/20 (MEDICAID REPLACEMENT - HMO) Francine Springer [id number] Francine Springer 11/12/2021 1 [facility] - [facility] ON OR AFTER 20 (MEDICAID REPLACEMENT - HMO) Francine Springer [id number] Francine Springer 11/12/2021 1 [facility] ON OR AFTER 09/19/20 (MEDICAID REPLACEMENT - HMO) Francine Arreguinnes [id number] Francine Springer 12/10/2021 1 [facility] - [facility] ON OR AFTER 20 (MEDICAID REPLACEMENT - HMO) Francine Springer [id number] Francine Springer 01/09/2022 1 [facility] ON OR AFTER 09/19/20 (MEDICAID REPLACEMENT - HMO) Francine Springer [id number] Francine Springer 03/12/2022 1 [facility] ON OR AFTER 09/19/20 (MEDICAID REPLACEMENT - HMO) Francine Gian [id number] Francine Arreguinnes Notes Date Note Type Note Provider Name and Address Organization Details Recorded Time 08/08/2021 text/html no fevers/chills/SOB.... BP med makes her cough per patient... has sinus issues.... white mucous... has foot swelling recently..... saw kohinoor operator and meds were switched... BP = 138/82.... Connor El MD Attn: [address] [place], [address], [facility] 08/08/2021 10:50:16 11/12/2021 text/html NOT SEEN. Ramiro Ford MD Attn: [address] [place], [address], [facility] 11/16/2021 12:56:47 12/10/2021 text/html BP = ?... did no t get sleep study... appt next month with pulm... muscle spasms of neck/arms... also has muscle spasms... cramps also... spoke with tracer powder blender... has leg swelling... Connor El MD Attn: [address] [place], [address], [facility] 12/10/2021 16:27:01 01/09/2022 text/html has issues with constipation and gas since BP med changes... ... losartan catches in her throat with swallowing... snores at times.. started chlorithaladone 50 mg daily... on coreg...does not take losartan at all... Connor El MD Attn: [address] [facility], [place], [address], [facility] 01/09/2022 13:55:46 03/12/2022 text/html no fevers/chills/SOB... no S/H ideations... has abdominal pain with BP meds... feels bloate... Connor El MD Attn: [address] [facility], [place], [address], [facility] 03/12/2022 15:54:03 OBGyn Episode No OBEpisode recorded.
--- OUTSIDE RECORDS SUMMARY | 2024-06-10 11:43 | XMS_ITS | Clinical Summary ---
Author Organization [facility] Address [address] [place] [address] Care Team Providers Care Computerized Mill [employer] Recorder Name Role Phone Connor El Primary Care Provider [phone] Source Comments [facility],non-owned Affiliates and Associated Physician Practices is amultiple site organization consisting of ambulatory clinics and hospital sitesin [place], [place], [place] and [place]. This disclosure is being madepursuant to the Care Everywhere program and may not contain all information available regarding this patient. Last updated 17.[facility] Allergies No known active allergies Medications * Be aware that medications may not be up to date on this document. Alwaysverify current medications with the patient. Medication Sig Dispensed Refills Start Date End Date Status losartan (COZAAR) 50 MG tablet Take 50 mg by mouth 2 times daily 09/25/2019 Active nitroGLYCERIN (NITROSTAT) 0.4 MG tablet DISSOLVE 1 T UNDER THE TONGUE Q 5 MINUTES UP TO THREE TS PRN FOR CHEST PAIN 07/06/2019 Active carvedilol (COREG) 25 MG tablet Take 25 mg by mouth 2 times daily 11/06/2019 Active fluticasone propionate (FLONASE) 50 MCG/ACT nasal spray [place] 2 (two) sprays into each nostril once daily 16 g 07/24/2020 Active Active Problems Problem Noted Date Diagnosed Date Non-ischemic cardiomyopathy 11/09/2019 Overview (11/09/2019): Diagnosed in 2019. C in July 2019 shows normal coronary arteries, EF 10% on angiogram. Assessment & Plan (11/09/2019 12:39 PM CDT): This 38 yo has non-ischemic cardiomyopathy. It appears she was diagnosed back in the springtime of this year. She had a LHC which shows normal coronary arteries. She has been on coreg 25 BID and losartan 25mg BID. She reports feeling better now, and repeat LHC in 09/2019 shows EF 30%. I told her that I would recommend checking another echocardiogram next month, and if it is still not better than 35%, then we should consider putting in an ICD for primary prevention. I think she will also benefit from a visit with a CHF specialist # Cont coreg 25mg PO BID # Cont losartan 25mg PO BID # I would recommend an echocardiogram in 1 month, if she chooses to follow with us, we can have it done here # If she chooses to follow with us, I will make referral to see my partner Dr. Todd Social History Tobacco Use Types Packs/Day Years Used Date Smoking Tobacco: Never Smokeless Tobacco: Never Alcohol Use Standard Drinks/Week Comments Never 0 (1 standard drink = 0.6 oz pur e alcohol) AUDIT-C Answer Date Recorded Q1: How often do you have a drink containing alc ohol? Never 11/09/2019 Average Number of Drinks Not on file 020 Frequency of Binge Drinking Not on file 10/21 PHQ-2 Answer Date Recorded PHQ2 TOTAL SCORE 0 07/24/2020 Sex and Gender Information Value Date Recorded Sex Assigned at Not on file Gender Identity Not on file Sexual Orientation Not on file Last Filed Vital Signs Vital Sign Reading Time Taken Comments Blood Pressure 142/86 07/24/2020 11:18 AM CDT Pulse 86 07/24/2020 11:18 AM CDT Temperature 36.7 C (98.1 F) 07/24/2020 11:18 AM CDT Respiratory Rate 14 07/24/2020 11:18 AM CDT Oxygen Saturation 98% 07/24/2020 11:18 AM CDT Inhaled Oxygen Concentration - - Weight 151 kg (333 lb) 07/24/2020 11:18 AM CDT Height 149.9 cm (4' 11 ) 07/24/2020 11:18 AM CDT Body Mass Index 67.26 07/24/2020 11:18 AM CDT Plan of Treatment Health Maintenance Due Date Last Done Comments LIPID TESTING 1981 MAMMOGRAM 1981 PAP SMEAR 1981 HIV SCREENING 1996 HEPATITIS C SCREENING 11/29/1999 DTAP/TDAP/TD VACCINES (1 - Tdap) 2000 HEPATITIS B VACCINE (1 of 3 - 19+ 3-dose series) 2000 COVID-19 VACCINE (1 - 2023-2 5 season) 2023 INFLUENZA VACCINE (#1) 2023 DEPRESSION SCREENING 03/22/2024 ZOSTER VACCINE (1 of 2) 12/04/2031 HIB VACCINE Aged Out No longer eligi ble based on patient's age to complete this topic HPV VACCINE Aged Out No longer eligi ble based on patient's age to complete this topic MENINGOCOCCAL (Group B) VACC INE SHARED DECISION-MAKING Aged Out No longer eligibl e based on patient's age to complete this topic MENINGOCOCCAL GROUPS A/C/Y/W VACCINE Aged Out No longer eligible b ased on patient's age to complete this topic PNEUMOCOCCAL VACCINE Aged Out No long er eligible based on patient's age to complete this topic Care Teams Computerized [employer] Recorder Relationship Specialty Start Date End Date Connor El [address] [place] [phone] PCP - General 10/05/19
--- OUTSIDE RECORDS SUMMARY | 2024-06-10 11:43 | XMS_ITS | CONTINUITY OF CARE DOCUMENT ---
Author Name irlanda, irlanda Address Unknown Organization [facility] Address [address] [place] [address] Phone [phone] Care Team Providers Care Propulsion Generator Repairer Name Role Phone Dhruv Stock MD Unavailable [phone] STEPHY BAEZA, JOSELUIS H Unavailable STEPHY BAEZA, JOSELUIS Yuan Unavailable [phone] PROBLEMS Condition Status Date Provider Notes CHF [...] In-person encounter Office Visit Dhruv Stock MD [facility] - In-person encounter Office Visit Dhruv Stock MD [facility] Cardiomyopathy, non-ischemic, EF 10% by cath 06/2019, EF 20% by echo 07/2019, EF 50% by echo 11/2019, EF 62% by echo 02/2021Mitral regurgitation, mild - In-person encounter Office Visit Dhruv Stock MD [facility] - In-person encounter Office Visit Dhruv Stock MD [facility] - In-person encounter Office Visit Dhruv Stock MD [facility] - In-person encounter Office Visit Dhruv Stock MD [facility] - In-person encounter Office Visit Dhruv Stock MD [facility] - In-person encounter Office Visit Dhruv Stock MD [facility] - In-person encounter Office Visit Dhruv Stock MD [facility] Cardiomyopathy, non-ischemic, EF 10% by cath 06/2019, EF 20% by echo 07/2019, EF 50% by echo 11/2019, EF 62% by echo 02/2021 - In-person encounter Office Visit Dhruv Stock MD [facility] - In-person encounter Office Visit Dhruv Stock MD [facility] - In-person encounter Office Visit Dhruv Stock MD [facility] Cardiomyopathy, non-ischemic, EF 10% by cath 06/2019, EF 20% by echo 07/2019, EF 50% by echo 11/2019, EF 62% by echo 02/2021 - In-person encounter Office Visit Dhruv Stock MD [facility] CHFHTN essentialMorbid obesityCardiomyopathy, non-ischemic, EF 10% [...] Sa ra Hayes weight E&M 344 [lb_av] Daneille Hayes height E&M 59 [in_i] Danielle Hayes [...] blood pressure, systolic 160 mm[Hg] Cheng ri Aruenenfelder oxygen saturation, oximetry 98 % Marley Andersoneldbridgett [...] Ignacia oxygen saturation, oximetry 99 % Tete Stambaugh respiratory rate E&M 19 /min Tete Ignacia pulse rate 82 /min Tete Stambaugh weight E&M 326 [lb_av] Tete Stambaugh height E&M 59 [in_i] Tete Stambaugh Body Mass Index (Ratio) 66.85 kg/m2 Clarice can Stock MD blood pressure, cuff size regular Kr isty Ignacia oxygen saturation, oximetry 97 % Tete Ignacia blood pressure, diastolic 105 mm[Hg] Kr isty Stambaugh blood pressure, systolic 142 mm[Hg] Kri sty Ignacia respiratory rate E&M 17 /min Tete Ignacia weight E&M 331 [lb_av] Tete Stambaugh height E&M 59 [in_i] Tete Stambaugh temperature site temporal Jennifer Tank sley temperature [...] TAKE 1 TABLET BY MOUTH DAILY 08/31 [facility] carvedilol 25 mg tablet active TAKE 1 TABLET BY MOUTH TWICE DAILY 08/31 [facility] chlorthalidone 25 mg tablet active TAKE 1 TABLET BY MOUTH DAILY 08/31 [facility] Coreg 25 mg tablet completed Take 1 tablet by mouth twice a day - 08/31 [facility] spironolactone 25 mg tablet completed Take 1 tablet by mouth once a day 07/28 - 08/31 [facility] losartan 100 mg tablet completed Take 1 tablet by mouth once a day - 07/28 Dhruv Stock MD chlorthalidone 25 mg tablet completed Take 1 tablet by mouth once a day 06/30 - 08/31 [facility] carvedilol 25 mg tablet completed Take 1 [...] 05/17/2020 fluticasone propionate 50 mcg/actuation spray,suspension active [place] 1 spray into both nostrils once a [...] hummel social history E&M S moking History: Sandra [...] Payer name Policy type / Coverage type [place] [employer] ID [employer] (2) Medicaid [id number] ADVANCE DIRECTIVES Name Date DISCUSSED - NO DECISION MADE TREATMENT PLAN Date Name Performer [id number],SDhruv ra, MD [id number],SDhruv ra, MD [id number],SDhruv ra, [place] [id number],S, Dhruv Nugent ra, [place] [id number],S, Dhruv Nugent ra, [place] [id number],C, B P today: 173/117 P rior BP: 160/52 (07/28/2021) Dhruv Stock MD [id number],C, W eight loss advised Dhruv Stock MD [id number],C,W ill add spironolactone 25 mg once a [...] mouth once a day Dhruv Stock MD [id number],C, T he following medications were removed from [...] mouth once a day Dhruv Stock MD [id number],S, Dhruv Nugent ra, MD [id number],W, Dhruv Nugent ra, [place] [id number],S, T he following medications were removed from the medication list: Carvedilol Unspecified Unspecified (Carvedilol) ..... Take 1 tablet by mouth once a day Her updated medication list for this problem includes: Chlorthalidone 25 Mg Tablet (Chlorthalidone) ..... Take 1 tablet by mouth once a day Carvedilol 25 Mg Tablet (Carvedilol) ..... Take 1 tablet by mouth twice a day Dhruv Stock MD [id number],W, B P today: 150/110 P rior BP: [...] mouth twice a day Dhruv Stock MD [id number],SDhruv ra, [place] [id number],BRico [id number],S, T he following medications were removed from [...] tablet under tongue as needed Rico Carter [id number],S, Rico Carter [id number],W, B P today: 170/100 P rior BP: 144/90 (09/02/2020) The following medications were removed from the medication list: Carvedilol 25 Mg Tablet (Carvedilol) ..... Take 1 tablet by mouth twice a day Her updated medication list for this problem includes: Losartan 100 Mg Tablet (Losartan) ..... Take 1 tablet by mouth once a day Rico Carter [id number],W, Dhruv Nugent ra, [place] [id number],C, u nmable to obtain BP today due to not having an appropriately sized cuff Prior BP: 144/90 (09/02/2020) Her updated medication list for this problem includes: Losartan Potassium 100 Mg Oral Tablet (Losartan potassium) ..... Take one tablet daily Carvedilol 25mg Tablets (Carvedilol) ..... Take 1 tablet by mouth twice daily Dhruv Stock MD [id number],S, H er updated medication list for this problem includes: Nitroglycerin 0.4 Mg Sublingual Tablet Sublingual (Nitroglycerin) ..... Dissolve 1 t under the tongue q 5 minutes up to three ts prn for chest pain Losartan Potassium 100 Mg Oral Tablet (Losartan potassium) ..... Take one tablet daily Carvedilol 25mg Tablets (Carvedilol) ..... Take 1 tablet by mouth twice daily Dhruv Stock MD [id number],S, Dhruv Nugent ra, MD [id number],S, H er updated medication list for this problem includes: Nitroglycerin 0.4 Mg Sublingual Tablet Sublingual (Nitroglycerin) ..... Dissolve 1 t under the tongue q 5 minutes up to three ts prn for chest pain Carvedilol 25mg Tablets (Carvedilol) ..... Take 1 tablet by mouth twice daily Rico Carter [id number],S, H er updated medication list for this problem includes: Losartan Potassium 100 Mg Oral Tablet (Losartan potassium) ..... Take one tablet daily Carvedilol 25mg Tablets (Carvedilol) ..... Take 1 tablet by mouth twice daily BP today: 144/90 P rior BP: 146/80 (06/24/2020) Rico Carter [id number],S, H er updated medication list for this problem includes: Nitroglycerin 0.4 Mg Sublingual Tablet Sublingual (Nitroglycerin) ..... Dissolve 1 t under the tongue q 5 minutes up to three ts prn for chest pain Losartan Potassium 100 Mg Oral Tablet (Losartan potassium) ..... Take one tablet daily Carvedilol 25mg Tablets (Carvedilol) ..... Take 1 tablet by mouth twice daily Rico Carter [id number],S, Dhruv Nugent ra, MD [id number],S, Dhruv Nugent ra, MD [id number],S, Dhruv Nugent ra, MD [id number],SDhruv ra, MD [id number],SDhruv ra, MD Cardiology Dhruv Salvador Cardiology Dhruv [...] tablet by mouth twice a day Dhruv tSock MD Cardiology: B P today: 150/110 P [...] mouth once a day Rico Carter Cardiology Dhruv Salvador Cardiology: u nmable to obtain BP [...] Notes S tatus EKG Dhruv Stock MD [facility] Device Check - Life vest Dhruv Stock MD completed EKG Dhruv Stock MD [facility]
[2024-06-10 11:44] VITALS: BP 159/105; PULSE 73; RESP 16; O2SAT 100
[2024-06-10 11:44] LABS: Add Urine Microscopic? NO; Appearance Urine Clear (Clear); Bilirubin Urine Negative (Negative); Blood Urine Negative (Negative); Color Urine Yellow (Yellow); Glucose Urine UA Negative (Negative); Ketones Urine Negative (Negative); Leukocyte Esterase Ur Negative LEU/UL (Negative); Nitrate Urine Negative (Negative); Protein Urine Negative (Negative); Specific Grav Ur 1.013 (1.001-1.035); Urobilinogen Urine 0.2 mg/dL (<2.0)
[2024-06-10 12:19] LABS: Glucose Point of Care 93 mg/dl (65-105)
[2024-06-10 12:27] LABS: Alanine Aminotransferase 18 U/L (6-35); Albumin Level 3.8 g/dL (3.5-5.1); Alkaline Phosphatase 78 U/L (38-126); Anion Gap 9 mmol/L (4-12); Aspartate Amino Transferase 30 U/L (14-36); Bilirubin,Total 0.4 mg/dL (0.2-1.3); Blood Urea Nitrogen 7 mg/dL (7-17); Calcium 8.9 mg/dL (8.4-10.2); Carbon Dioxide 27 mmol/L (22-30); Chloride 103 mmol/L (98-107); Estimated Glomerular Filt Rate > 60; Glucose 95 mg/dL (65-110); Lipase 31 U/L (23-300); Sodium 139 mmol/L (137-145)
[2024-06-10 12:28] LABS: Basophils Percent Auto 0.4 % (0.2-1.2); Eosinophils Absolute Auto 0.1 K/mm3 (0-0.3); Eosinophils Percent Auto 0.9 % (0-4.4); Hematocrit 43.8 % (37.0-47.0); Hemoglobin 12.5 g/dL (12.0-15.0); Immature Granulocyte Absolute 0.03 K/mm3 (0.00-0.031); Immature Granulocyte Percent A 0.4 % (0-0.5); Immature Platelet Fraction Pct 3.8 % (0.9-11.2); Lymphocytes Percent Auto 27.5 % (18.3-44.2); Mean Corpuscular HGB Conc 28.5 g/dl (32-36); Mean Corpuscular Hemoglobin 23.3 pg (26-34); Mean Corpuscular Volume 81.6 fl (80-100); Mean Platelet Volume 10.6 fl (7.4-10.4); Monocytes Absolute Auto 0.8 K/mm3 (0.1-0.6); Monocytes Percent Auto 11.6 % (2.6-8.5); Neutrophils Absolute Auto 4.1 K/mm3 (1.3-6.7); Neutrophils Percent Auto 59.2 % (45.5-73.1); Platelet Count Result 193 k/mm3 (150-375); Red Blood Count 5.37 M/mm3 (4.2-5.4); Red Cell Distribution Width 16.8 % (11.5-14.5); White Blood Count 6.9 K/mm3 (4.5-10.0)
--- NOTE | 2024-06-10 13:06 | ED.GENADULT ---
HPI - General Adult General Chief complaint: Unspecified Stated complaint: multiple complaints Time Seen by Provider: 06/10/24 11:18 History of Present Illness HPI narrative: 43-year-old female present to the emergency department for evaluation for multiple complaints including leg burning x2 weeks, intermittent diarrhea and constipation, rash to her left arm, frequent urination and pain to the right knee. Related Data Allergies Allergy/AdvReac Type Severity Reaction Status Date / Time No Known Allergies Allergy Verified 06/10/24 11:02 Review of Systems Review of Systems: All systems reviewed & are unremarkable except as noted in HPI and below PMFSH Past Medical History Medical History (Updated 06/10/24 @ 13:19 by John Pinzon MD) No active medical problems Social History Social History (Updated 07/02/19 @ 12:28 by Angela Martinez PA-C) Smoking status: Never smoker Exam Narrative: APPEARANCE: Well appearing, no pain, no distress, well-nourished. HEAD: normocephalic, atraumatic. EYES: PERRLA/EOMI, conjunctivae clear. NOSE: Normal no drainage EARS:TMS clear with good light reflex. THROAT: Pharynx clear, no exudate. NECK: Supple. No adenopathy, no masses. RESPIRATORY: Airway patent, respirations nonlabored. Clear to auscultation bilaterally, no rales, rhonchi, wheezing. CARDIOVASCULAR: Regular rate and rhythm without murmurs rubs or gallops. ABDOMINAL: Soft, nontender, nondistended, normal bowel sounds MUSCULOSKELETAL: Moves all extremities. Strength/ROM intact, No edema, No calf tenderness. NEURO: Alert. Cranial nerves II through XII intact. Grossly intact SKIN: Nonspecific rash to left posterior Course Vital Signs Vital signs: Vital Signs Temperature 97.9 F 06/10/24 11:08 Pulse Rate 114 H 06/10/24 11:08 Respiratory Rate 20 06/10/24 11:08 Blood Pressure 181/114 H 06/10/24 11:08 Pulse Oximetry 100 06/10/24 11:08 Oxygen Delivery Room Air 06/10/24 11:08 Temperature 97.9 F 06/10/24 11:08 Pulse Rate 73 06/10/24 11:44 Respiratory Rate 16 06/10/24 11:44 Blood Pressure 159/105 H 06/10/24 11:44 Pulse Oximetry 100 06/10/24 11:44 Oxygen Delivery Room Air 06/10/24 11:08 Medical Decision Making MDM Narrative Medical decision making narrative: 43-year-old female presents emergency department for evaluation for multiple complaints. Patient is currently afebrile with no leukocytosis and hemoglobin of 12.5. CMP has no acute abnormalities. Urine was negative for infection. No evidence of diabetes with a normal blood glucose and no anion gap. Patient is not jumping glucose in her urine and no ketones or proteinuria. Rash to her left arm as mild and has not appear to be a cellulitis or a folliculitis. Knee x-ray does show tricompartmental osteoarthritis. Patient was updated results of her workup. Vital Signs Vital Signs: Vital Signs Temperature 97.9 F 06/10/24 11:08 Pulse Rate 114 H 06/10/24 11:08 Respiratory Rate 20 06/10/24 11:08 Blood Pressure 181/114 H 06/10/24 11:08 Pulse Oximetry 100 06/10/24 11:08 Oxygen Delivery Room Air 06/10/24 11:08 Temperature 97.9 F 06/10/24 11:08 Pulse Rate 73 06/10/24 11:44 Respiratory Rate 16 06/10/24 11:44 Blood Pressure 159/105 H 06/10/24 11:44 Pulse Oximetry 100 06/10/24 11:44 Oxygen Delivery Room Air 06/10/24 11:08 Lab Data 06/10/24 12:12 06/10/24 12:05 Labs: Lab Results 06/10/24 06/10/24 06/10/24 Range/Units 11:28 11:31 12:05 WBC (4.5-10.0) K/mm3 RBC (4.2-5.4) M/mm3 Hgb (12.0-15.0) g/dL Hct (37.0-47.0) % MCV (80-100) fl MCH (26-34) pg MCHC (32-36) g/dl RDW (11.5-14.5) % Plt Count (150-375) k/mm3 MPV (7.4-10.4) fl Immature Gran % (Auto) (0-0.5) % Neut % (Auto) (45.5-73.1) % Lymph % (Auto) (18.3-44.2) % [place] % (Auto) (2.6-8.5) % Eos % (Auto) (0-4.4) % Baso % (Auto) (0.2-1.2) % Lymph # (Auto) (0.9-3.2) K/mm3 [place] # (Auto) (0.1-0.6) K/mm3 Eos # (Auto) (0-0.3) K/mm3 Baso # (Auto) (0.0-0.1) K/mm3 Abs Immat Gran (auto) (0.00-0.031) K/mm3 Absolute Neuts (auto) (1.3-6.7) K/mm3 Absolute Nucleated RBC (0.0-0.012) K/mm3 Nucleated RBC % (0.0-0.2) % % Immature Plt Fraction (0.9-11.2) % Sodium 139 (137-145) mmol/L Potassium 4.0 (3.4-5.0) mmol/L Chloride 103 (98-107) mmol/L Carbon Dioxide 27 (22-30) mmol/L Anion Gap 9 (4-12) mmol/L BUN 7 D (7-17) mg/dL Creatinine 0.64 L (0.7-1.0) mg/dL Estim Creat Clear Calc Not Reportable Estimated GFR > 60 (59 - ) Glucose 95 (65-110) mg/dL POC Capillary Glucose (65-105) mg/dl Calcium 8.9 (8.4-10.2) mg/dL Total Bilirubin 0.4 (0.2-1.3) mg/dL AST 30 (14-36) U/L ALT 18 (6-35) U/L Alkaline Phosphatase 78 (38-126) U/L Total Protein 8.0 (6.3-8.2) g/dL Albumin 3.8 (3.5-5.1) g/dL Lipase 31 (23-300) U/L Urine Color Yellow (Yellow) Urine Appearance Clear (Clear) Urine pH 6.0 (5.0-9.0) Ur Specific [place] 1.013 (1.001-1.035) Urine Protein Negative (Negative) mg/dL Urine Glucose (UA) Negative (Negative) mg/dL Urine Ketones Negative (Negative) mg/dL Ur Blood (Man) Negative (Negative) Urine Nitrate Negative (Negative) Urine Bilirubin Negative (Negative) Urine Urobilinogen 0.2 (<2.0) mg/dL Leukocyte Esterase Rfl Negative (Negative) SUHAS/UL POC Urine HCG, Qual Negative (Negative) 06/10/24 06/10/24 Range/Units 12:12 12:17 WBC 6.9 (4.5-10.0) K/mm3 RBC 5.37 (4.2-5.4) M/mm3 Hgb 12.5 (12.0-15.0) g/dL Hct 43.8 (37.0-47.0) % MCV 81.6 (80-100) fl MCH 23.3 L (26-34) pg MCHC 28.5 L (32-36) g/dl RDW 16.8 H (11.5-14.5) % Plt Count 193 (150-375) k/mm3 MPV 10.6 H (7.4-10.4) fl Immature Gran % (Auto) 0.4 (0-0.5) % Neut % (Auto) 59.2 (45.5-73.1) % Lymph % (Auto) 27.5 (18.3-44.2) % [place] % (Auto) 11.6 H (2.6-8.5) % Eos % (Auto) 0.9 (0-4.4) % Baso % (Auto) 0.4 (0.2-1.2) % Lymph # (Auto) 1.90 (0.9-3.2) K/mm3 [place] # (Auto) 0.8 H (0.1-0.6) K/mm3 Eos # (Auto) 0.1 (0-0.3) K/mm3 Baso # (Auto) 0.0 (0.0-0.1) K/mm3 Abs Immat Gran (auto) 0.03 (0.00-0.031) K/mm3 Absolute Neuts (auto) 4.1 (1.3-6.7) K/mm3 Absolute Nucleated RBC 0.000 (0.0-0.012) K/mm3 Nucleated RBC % 0.0 (0.0-0.2) % % Immature Plt Fraction 3.8 (0.9-11.2) % Sodium (137-145) mmol/L Potassium (3.4-5.0) mmol/L Chloride (98-107) mmol/L Carbon Dioxide (22-30) mmol/L Anion Gap (4-12) mmol/L BUN (7-17) mg/dL Creatinine (0.7-1.0) mg/dL Estim Creat Clear Calc Estimated GFR (59 - ) Glucose (65-110) mg/dL POC Capillary Glucose 93 (65-105) mg/dl Calcium (8.4-10.2) mg/dL Total Bilirubin (0.2-1.3) mg/dL AST (14-36) U/L ALT (6-35) U/L Alkaline Phosphatase (38-126) U/L Total Protein (6.3-8.2) g/dL Albumin (3.5-5.1) g/dL Lipase (23-300) U/L Urine Color (Yellow) Urine Appearance (Clear) Urine pH (5.0-9.0) Ur Specific [place] (1.001-1.035) Urine Protein (Negative) mg/dL Urine Glucose (UA) (Negative) mg/dL Urine Ketones (Negative) mg/dL Ur Blood (Man) (Negative) Urine Nitrate (Negative) Urine Bilirubin (Negative) Urine Urobilinogen (<2.0) mg/dL Leukocyte Esterase Rfl (Negative) SUHAS/UL POC Urine HCG, Qual (Negative) Discharge Plan Discharge Clinical Impression: Eczema, Callus of heel, Osteoarthritis Patient Disposition: Home, Self-Care Condition: Stable Instructions: Antibiotic Form Additional Instructions: Use skin moisturizer on posterior left arm and on calluses. Have close follow-up with podiatry for the calluses feet. Have follow-up with orthopedics for knee osteoarthritis. Tylenol and ibuprofen for pain control. Have close follow-up with your primary care physician. Patient Language: Ukrainian Follow-up/Referrals: Hever San Jr., DPM [Physician] - Nikko,Connor Pack MD [Primary Care Provider] - Emanuel Dickinson MD [Physician] -
== END 2024-06-10 13:44 | disposition home or self-care (01) ==
PROVIDERS: Emergency Provider Emergency Medicine; PCP Family Medicine
DX: L30.9 Dermatitis, unspecified (principal); L84 Corns and callosities; M17.11 Unilateral primary osteoarthritis, right knee
CPT/HCPCS: 36415; 73562; 80053; 81003; 81025; 82948; 83690; 85025; 85055; 99283